=== PATIENT | male | born 1955 | race Caucasian/White ===

== ENCOUNTER 2020-03-13 17:38 | Inpatient (IN) ==
[2020-03-13] MEDS ORDERED: PIPERACILLIN/TAZOBACTAM 4.5 GM/120 ML BAG IV ONE (17:53)
[2020-03-13] MEDS ORDERED: PIPERACILL/TAZOBAC CONSULT ACTIVE PRN ×2 (17:53→23:12)
[2020-03-13] MEDS ORDERED: SODIUM CHLORIDE 0.9% 1000ML 1,000 ML IV SCH (18:00)
--- NOTE | 2020-03-13 18:01 | Emergency Department Note ---
History of Present Illness General Chief complaint: Testicular Pain Stated complaint: Swelling Time Seen by Provider: 03/13/20 17:43 Source: patient Mode of arrival: EMS Limitations: no limitations History of Present Illness Provider complaint: Scrotal pain/redness Maximum Pain Intensity: 9 This is a 64-year-old male who presents to the ED with a chief complaint of redness, swelling and pain in his scrotum. The patient states that he has had it for a couple of days. He also has reportedly had a fever. He was tested for Covid on Sunday that was negative. He has history of stroke and for this reason he is residing at [facility]. Home Medications Home Medications Medication Instructions Recorded Confirmed Type acetaminophen 325 mg capsule 650 mg PO Q6H PRN MDD 3 /12/23/19 03/13/20 History HOURS benzocaine 15 mg-menthol 2.3 mg 1 tari PO DIRECTED PRN 12/23/19 03/13/20 History lozenges chlorthalidone 25 mg tablet 12.5 mg PO QAM tab 12/23/19 03/13/20 History diphenhydramine HCl 25 mg capsule 25 mg PO QPM cap 12/23/19 03/13/20 History famotidine 20 mg tablet 20 mg PO BID 12/23/19 03/13/20 History finasteride 5 mg tablet 5 mg PO QAM 12/23/19 03/13/20 History fluoxetine 20 mg capsule 20 mg PO QAM 12/23/19 03/13/20 History labetalol 100 mg tablet 50 mg PO BID tab 12/23/19 03/13/20 History loperamide 2 mg capsule 2 mg PO Q6H PRN 12/23/19 03/13/20 History losartan 25 mg tablet 25 mg PO QAM 12/23/19 03/13/20 History methyl salicylate 15 %-menthol 10 1 appln TOP TID PRN 12/23/19 03/13/20 History % topical cream rivaroxaban 10 mg tablet 10 mg PO QPM 12/23/19 03/13/20 History tamsulosin 0.4 mg capsule 0.4 mg PO HS 12/23/19 03/13/20 History melatonin 3 mg PO HS 03/13/20 03/13/20 History nystatin 1 applic TOPICAL BID 03/13/20 03/13/20 History ondansetron HCl [Zofran] 4 mg PO Q6H PRN 03/13/20 03/13/20 History sennosides-docusate sodium 1 tab-cap PO QPM 03/13/20 03/13/20 History [Senokot-S] Allergies Allergy/AdvReac Type Severity Reaction Status Date / Time coffee (Coffea arabica) Allergy Unknown ON CENTRE Verified 03/13/20 20:21 CREST LIST strawberry Allergy Unknown ON CENTRE Verified 03/13/20 20:21 CREST LIST ENVIRONMENT Allergy Intermediate CONGESTION Uncoded 03/13/20 20:22 Past Med/Surg History Medical History Atrial fibrillation Depression Diabetes HTN (hypertension) Left hemiparesis Morbid obesity Family History Other Cancer No pertinent family history in first degree relatives Stroke Social History Smoking Status: Never smoker Preferred Language: Monegas[place] Feels Safe at Home: Yes Review of Systems A total of 10 systems reviewed and were otherwise negative Physical Exam Vital Signs Vital Signs - 24 hr 03/13/20 17:49 03/13/20 17:52 03/13/20 17:54 Temperature 36.9 C Temperature Source Oral Pulse Rate 85 84 95 H Pulse Rate from SpO2 Sensor Pulse Rhythm Regular Pulse Strength Normal Respiratory Rate 34 H 24 34 H Respiratory Effort / Characteristics Non-Labored Spontaneous Respiratory Depth Normal Respiratory Pattern Regular Blood Pressure 135/81 135/81 Blood Pressure Mean 92 99 Blood Pressure Position Lying Pulse Oximetry 96 97 Oxygen Delivery Method Room Air Room Air Sepsis Recent Fever Within 48 Hours Yes Sepsis New/Unexplained Change in Mental Status N/A Sepsis Action Taken by Nursing No Action Required 03/13/20 17:57 03/13/20 18:00 03/13/20 18:01 Temperature Temperature Source Pulse Rate 89 93 H Pulse Rate from SpO2 Sensor Pulse Rhythm Pulse Strength Respiratory Rate 26 H 25 H Respiratory Effort / Characteristics Respiratory Depth Respiratory Pattern Blood Pressure 129/90 Blood Pressure Mean 96 Blood Pressure Position Pulse Oximetry 97 97 Oxygen Delivery Method Room Air Room Air Sepsis Recent Fever Within 48 Hours Sepsis New/Unexplained Change in Mental Status Sepsis Action Taken by Nursing 03/13/20 18:30 03/13/20 19:00 03/13/20 19:01 Temperature Temperature Source Pulse Rate 95 H 91 H Pulse Rate from SpO2 Sensor Pulse Rhythm Pulse Strength Respiratory Rate 30 H 18 Respiratory Effort / Characteristics Respiratory Depth Respiratory Pattern Blood Pressure 108/78 Blood Pressure Mean 79 Blood Pressure Position Pulse Oximetry 96 Oxygen Delivery Method Room Air Sepsis Recent Fever Within 48 Hours Sepsis New/Unexplained Change in Mental Status Sepsis Action Taken by Nursing 03/13/20 20:06 03/13/20 20:09 03/13/20 20:30 Temperature Temperature Source Pulse Rate 94 H 94 H 105 H Pulse Rate from SpO2 Sensor 93 H Pulse Rhythm Pulse Strength Respiratory Rate 15 33 H 38 H Respiratory Effort / Characteristics Respiratory Depth Respiratory Pattern Blood Pressure 159/141 H Blood Pressure Mean 146 Blood Pressure Position Pulse Oximetry 94 95 Oxygen Delivery Method Room Air Room Air Sepsis Recent Fever Within 48 Hours Sepsis New/Unexplained Change in Mental Status Sepsis Action Taken by Nursing 03/13/20 21:00 03/13/20 21:01 Temperature Temperature Source Pulse Rate 99 H 97 H Pulse Rate from SpO2 Sensor 97 H 99 H Pulse Rhythm Pulse Strength Respiratory Rate 26 H 26 H Respiratory Effort / Characteristics Respiratory Depth Respiratory Pattern Blood Pressure 138/76 Blood Pressure Mean 99 Blood Pressure Position Pulse Oximetry 92 94 Oxygen Delivery Method Room Air Room Air Sepsis Recent Fever Within 48 Hours Sepsis New/Unexplained Change in Mental Status Sepsis Action Taken by Nursing CONSTITUTIONAL/VITAL SIGNS: Reviewed / noted above. GENERAL: Non-toxic in appearance. INTEGUMENTARY: Warm, dry, and [place]. HEAD: Normocephalic. EYES: without scleral icterus or trauma. ENT/OROPHARYNX: clear and moist. LYMPHADENOPATHY/NECK: Is supple without lymphadenopathy or meningismus. RESPIRATORY: Lungs clear and equal. CARDIOVASCULAR: Regular rate and rhythm. GI/ABDOMEN: Soft and nontender. No organomegaly or pulsatile mass. No rebound or guarding. Normal bowel sounds. EXTREMITIES: Warm and well perfused. NEUROLOGICAL: Generalized weakness. Left-sided paresis. PSYCHIATRIC: normal affect. MUSCULOSKELETAL: Chronically bedbound and obese. SCROTUM: The scrotum is significantly enlarged and erythematous as well as tender with some superficial skin breakdown. TRIAGE NURSING DOCUMENTATION REVIEWED. Course Administered Medications Discontinued Medications Sodium Chloride (Nss 1000ml) 1,000 mls @ 999 mls/hr IV .Q1H1M GUSTAVO Stop: 03/13/20 19:00 Last Infusion: 03/13/20 19:52 Dose: 0 mls/hr Documented by: [id number] Admin: 03/13/20 18:51 Dose: 999 mls/hr Documented by: [id number] Piperacillin Sod/Tazobactam Sod (Zosyn) 4.5 gm in 120 mls @ 240 mls/hr IV NOW ONE Stop: 03/13/20 18:22 Last Infusion: 03/13/20 19:21 Dose: 0 mls/hr Documented by: [id number] Admin: 03/13/20 18:51 Dose: 240 mls/hr Documented by: [id number] Ioversol (Ioversol 100ml) 95 ml IV ONCE ONE Stop: 03/13/20 19:58 Last Admin: 03/13/20 19:57 Dose: 95 ml Documented by: [id number] Medical Decision Making Differential Diagnosis Cellulitis, abscess, MRSA infection, DVT, necrotizing fasciitis, dermatitis, drug eruption, allergic reaction, as well as other pathologies. Medical Records Attestation: I reviewed the patient's medical records. Home Medications Current Medication List: was personally reviewed by me Laboratory Data Attestation: I reviewed the patient's lab results. Result diagrams: 03/13/20 18:41 03/13/20 18:41 Lab Results 03/13/20 03/13/20 03/13/20 Range/Units 18:41 18:41 18:41 WBC 15.42 H (4.8-10.8) K/uL RBC 4.66 L (4.7-6.1) M/uL Hgb 14.3 (14.0-18.0) g/dL Hct 42.0 (42-52) % MCV 90.1 (80-100) fL MCH 30.7 (25-34) pg MCHC 34.0 (32-36) g/dL RDW Std Deviation 42.6 (36.4-46.3) fL RDW Coeff of [place] 13.0 (11.5-14.5) % Plt Count 243 (130-400) K/uL MPV 10.6 H (7.4-10.4) fL Immature Gran % (Auto) 0.3 % Neut % (Auto) 77.5 % Lymph % (Auto) 13.1 % [place] % (Auto) 8.8 % Eos % (Auto) 0.2 % Baso % (Auto) 0.1 % Neut # (Auto) 11.97 H (1.4-6.5) K/uL Lymph # (Auto) 2.02 (1.2-3.4) K/uL [place] # (Auto) 1.35 H (0.11-0.59) K/uL Eos # (Auto) 0.03 (0-0.5) K/uL Baso # (Auto) 0.01 (0-0.2) K/uL Immature Gran # (Auto) 0.04 H (0.00-0.02) K/uL Sodium 130 L (136-145) mmol/L Potassium 3.1 L (3.5-5.1) mmol/L Chloride 93 L (98-107) mmol/L Carbon Dioxide 32 (21-32) mmol/L Anion Gap 5.0 (3-11) BUN 25 H (7-18) mg/dl Creatinine 1.10 (0.6-1.4) mg/dl Est Cr Clr Drug Dosing 100.6 ml/min Est GFR ( Amer) 82.4 Est GFR (Non-Af Amer) 71.1 BUN/Creatinine Ratio 22.6 H (10-20) Glucose 95 (70-99) mg/dl Lactate 1.3 (0.4-2.0) mmol/L Calcium 9.4 (8.5-10.1) mg/dl Total Bilirubin 1.3 H (0.2-1) mg/dl AST 17 (15-37) U/L ALT 20 (12-78) U/L Alkaline Phosphatase 75 (45-117) U/L Total Protein 8.8 H (6.4-8.2) gm/dl Albumin 3.3 L (3.4-5.0) gm/dl Globulin 5.5 H (2.5-4.0) gm/dl Albumin/Globulin Ratio 0.6 L (0.9-2) Lipase 70 L (73-393) U/L Urine Color Urine Appearance (Clear) Urine pH (4.5-7.5) Ur Specific [place] (1.000-1.030) Urine Protein (Negative) Urine Glucose (UA) (Negative) Urine Ketones (Negative) Urine Blood (Negative) Urine Nitrite (Negative) Urine Bilirubin (Negative) Urine Urobilinogen (Negative) Ur Leukocyte Esterase (Negative) 03/13/20 Range/Units 20:36 WBC (4.8-10.8) K/uL RBC (4.7-6.1) M/uL Hgb (14.0-18.0) g/dL Hct (42-52) % MCV (80-100) fL MCH (25-34) pg MCHC (32-36) g/dL RDW Std Deviation (36.4-46.3) fL RDW Coeff of [place] (11.5-14.5) % Plt Count (130-400) K/uL MPV (7.4-10.4) fL Immature Gran % (Auto) % Neut % (Auto) % Lymph % (Auto) % [place] % (Auto) % Eos % (Auto) % Baso % (Auto) % Neut # (Auto) (1.4-6.5) K/uL Lymph # (Auto) (1.2-3.4) K/uL [place] # (Auto) (0.11-0.59) K/uL Eos # (Auto) (0-0.5) K/uL Baso # (Auto) (0-0.2) K/uL Immature Gran # (Auto) (0.00-0.02) K/uL Sodium (136-145) mmol/L Potassium (3.5-5.1) mmol/L Chloride (98-107) mmol/L Carbon Dioxide (21-32) mmol/L Anion Gap (3-11) BUN (7-18) mg/dl Creatinine (0.6-1.4) mg/dl Est Cr Clr Drug Dosing ml/min Est GFR ( Amer) Est GFR (Non-Af Amer) BUN/Creatinine Ratio (10-20) Glucose (70-99) mg/dl Lactate (0.4-2.0) mmol/L Calcium (8.5-10.1) mg/dl Total Bilirubin (0.2-1) mg/dl AST (15-37) U/L ALT (12-78) U/L Alkaline Phosphatase (45-117) U/L Total Protein (6.4-8.2) gm/dl Albumin (3.4-5.0) gm/dl Globulin (2.5-4.0) gm/dl Albumin/Globulin Ratio (0.9-2) Lipase (73-393) U/L Urine Color Dark Yellow Urine Appearance Cloudy A (Clear) Urine pH 5.0 (4.5-7.5) Ur Specific [place] 1.036 H (1.000-1.030) Urine Protein 2+ H (Negative) Urine Glucose (UA) Negative (Negative) Urine Ketones Negative (Negative) Urine Blood 2+ H (Negative) Urine Nitrite Positive A (Negative) Urine Bilirubin Negative (Negative) Urine Urobilinogen Negative (Negative) Ur Leukocyte Esterase 2+ H (Negative) Imaging Data Radiologist's Impression: A CT scan of the abdomen pelvis with IV contrast, per stat rad shows a severe subcutaneous edema seen throughout the scrotum and skin thickening measuring approximately 2 cm. There are bilateral hydroceles measuring 1.3 and 1.8 cm. No subcutaneous gas is identified. Consider cellulitis or orchitis. MDM Narrative The patient presents to the ED with a chief complaint of scrotal swelling, pain and redness. He has had this for a couple of days. He is a diabetic. He has history of stroke. He is on anticoagulation for A. fib chronically. He reportedly had a fever. The patient's CBC shows a white blood cell count of 15.4. Potassium is 3.1. BUN is 25. Other blood work was unremarkable. Lactate was normal. Urine is suggestive of infection. CT scan shows scrotal cellulitis without evidence of gas-forming. The patient was treated with IV Zosyn and IV fluids. He will be seen by the hospitalist for further patient evaluation and care. Impression & Plan Cellulitis of scrotum, Acute UTI Discharge Plan Visit Data Chief Complaint: Testicular Pain Stated Complaint: Swelling ED Provider: Mukund Gamble Discharge Problem: Cellulitis of scrotum, Acute UTI Patient Disposition: Being Evaluated by Hospitalist Forms Stand Alone Forms: [employer] Prescriptions Prescriptions: No Action Beng[place] Greaseless 15-10 % cream 1 appln TOP TID PRN (Reason: PAIN RELIEF) RF: 0 Cepacol Sore Throat (naye-men) 15-2.3 mg lozenge 1 tari PO DIRECTED PRN (Reason: sore throat) RF: 0 chlorthalidone 25 mg tablet 12.5 mg PO QAM RF: 0 diphenhydramine HCl [Allergy (diphenhydramine)] 25 mg capsule 25 mg PO QPM RF: 0 famotidine 20 mg tablet 20 mg PO BID RF: 0 finasteride 5 mg tablet 5 mg PO QAM RF: 0 fluoxetine 20 mg capsule 20 mg PO QAM RF: 0 loperamide [Imodium A-D] 2 mg capsule 2 mg PO Q6H PRN (Reason: Diarrhea) RF: 0 labetalol 100 mg tablet 50 mg PO BID RF: 0 losartan 25 mg tablet 25 mg PO QAM RF: 0 tamsulosin 0.4 mg capsule 0.4 mg PO HS RF: 0 acetaminophen [Tylenol] 325 mg capsule 650 mg PO Q6H MDD 3 GRAMS/24 HOURS PRN (Reason: FEVER/PAIN) RF: 0 Xarelto 10 mg tablet 10 mg PO QPM RF: 0 ondansetron HCl [Zofran] 4 mg Tablet 4 mg PO Q6H PRN (Reason: NAUSEA/VOMITING) RF: 0 sennosides-docusate sodium [Senokot-S] 8.6-50 mg Tablet 1 tab-cap PO QPM RF: 0 melatonin 3 mg Tablet 3 mg PO HS RF: 0 nystatin 100,000 unit/gram Cream 1 applic TOPICAL BID RF: 0 Referrals Referrals: Hemal Sheriff [Primary Care Provider] -
[2020-03-13 18:59] LABS: Basophils # (auto) 0.01 K/uL (0-0.2); Basophils % (auto) 0.1 %; Eosinophils # (auto) 0.03 K/uL (0-0.5); Eosinophils % (auto) 0.2 %; Hemoglobin 14.3 g/dL (14.0-18.0); Immature Granulocytes # (auto) 0.04 K/uL (0.00-0.02); Immature Granulocytes % (auto) 0.3 %; Lymphocytes # (auto) 2.02 K/uL (1.2-3.4); Lymphocytes % (auto) 13.1 %; Mean Corpuscular Hemoglobin 30.7 pg (25-34); Mean Corpuscular Volume 90.1 fL (80-100); Mean Platelet Volume 10.6 fL (7.4-10.4); Monocytes # (auto) 1.35 K/uL (0.11-0.59); Monocytes % (auto) 8.8 %; Neutrophils # (auto) 11.97 K/uL (1.4-6.5); Neutrophils % (auto) 77.5 %; Platelet Count 243 K/uL (130-400); RDW Standard Deviation 42.6 fL (36.4-46.3); Red Blood Count 4.66 M/uL (4.7-6.1); White Blood Count 15.42 K/uL (4.8-10.8)
[2020-03-13 19:12] LABS: Albumin Level 3.3 gm/dl (3.4-5.0); BUN Creatinine Ratio 22.6 (10-20); Calcium 9.4 mg/dl (8.5-10.1); Creatinine Clr Calc Pharmacy 100.6 ml/min; Est GFR (African American) 82.4; Est GFR (Non-African American) 71.1; Potassium 3.1 mmol/L (3.5-5.1)
[2020-03-13 19:15] LABS: Albumin Globulin Ratio 0.6 (0.9-2); Bilirubin,Total 1.3 mg/dl (0.2-1); Globulin 5.5 gm/dl (2.5-4.0); Total Protein 8.8 gm/dl (6.4-8.2)
[2020-03-13] MEDS ORDERED: IOVERSOL 100ml IV ONE (19:57)
[2020-03-13 21:18] LABS: Appearance Urine Cloudy (Clear); Bacteria Urine Automated 3+ (Negative); Bilirubin Urine Negative (Negative); Blood Urine 2+ (Negative); Color Urine Dark Yellow; Glucose Urine UA Negative (Negative); Ketones Urine Negative (Negative); Leukocyte Esterase Urine 2+ (Negative); Nitrite Urine Positive (Negative); Protein Urine 2+ (Negative); RBC Urine Automated 0-4 /hpf (0-4); Specific Gravity Urine 1.036 (1.000-1.030); Urobilinogen Urine Negative (Negative); WBC Urine Automated >30 /hpf (0-5)
--- NOTE | 2020-03-13 22:46 | History & Physical Report ---
Date of Service March 13, 2020 Assessment & Plan (1) Cellulitis of scrotum: Patient with scrotal cellullitis, ?orchitis as well as bilateral hydroceles. He is afebrile, HD stable at present. Has a neutrophil predominant leukocytosis and +urinalysis. CT of the abdomen with NO evidence of gas or necrotizing infection. -Admit to medical floor -Apply scrotal lift if tolerated -Zosyn 4.5gm IV q 8 -Follow cultures -Tylenol as needed for pain -Urology consultation appreciated Present on Admission?: Yes (2) Shortness of breath: Patient reports worsening shortness of breath over the last few days as well as orthopnea. He does not appear to be volume overloaded on exam, however exam is limited due to body habitus. -Check TSH -Check BNP -Check 2D echo Present on Admission?: Yes (3) Atrial fibrillation: Rate controlled. Anticoagulated with Rivaroxaban -Continue Labetalol 50mg po BID -Continue Rivaroxaban 10mg po qPM Present on Admission?: Yes (4) HTN (hypertension): Blood pressure mildly elevated in the ER -Continue Chlorthalidone 12.5mg po daily -Continue Labetalol 50mg po BID -Continue Losartan 25mg po qAM -Continue to monitor Present on Admission?: Yes (5) BPH (benign prostatic hyperplasia): Chronic -Continue Finasteride 5mg po qAM -Continue Flomax 0.4mg po qHA Present on Admission?: Yes (6) Depression: Patient with flat affect, seems slightly angry at times. He is compliant with therapy and exam -Continue Fluoxetine 20mg po qAM F/E/N - NSS at 125mL/hr x 2 liters, monitor electrolytes, will give 40mEq KCl for K of 3.1, repeat chemistry panel in AM, Heart healthy diet as tolerated Patient has diagnosis of DM in his chart, however, he denies that he is diabetic. Is not currently on any medications for DM. BS normal at 95. Check HgBA1C with AM labs Continue Senokot Ppx - Rivaroxaban 10mg po qPM as above Code - DNR/DNI per discussion with patient Dispo - Admit to medical floor Present on Admission?: Yes History of Present Illness Chief Complaint: testicular pain Primary Care Provider: [facility] Mr. Diego Lozada is a 64yo C male with history of atrial fibrillation, obesity, prior CVA with left sided deficit. Patient resides at [facility]. He reports 3-4 days of testicular pain and swelling. He has had some subjective fevers and chills as well as nausea. Notes he has had some worsening shortness of breath over the last few weeks as well as some orthopnea. He has never had difficulties with testicular pain or swelling before. He denies penile discharge. Is not sexually active. Denies CP/palpitations/abdominal pain/vomiting/constipation Has loose stools at baseline. No Covid-19 concerns - per [facility] records he had testing on Sunday which was negative No additional complaints at this time. ER Course: Zosyn Allergies Allergy/AdvReac Type Severity Reaction Status Date / Time coffee (Coffea arabica) Allergy Unknown ON CENTRE Verified 03/13/20 20:[address] [facility] LIST strawberry Allergy Unknown ON CENTRE Verified 03/13/20 20: [facility] LIST ENVIRONMENT Allergy Intermediate CONGESTION Uncoded 03/13/20 20:22 Home Medications Home Medications Medication Instructions Recorded Confirmed Type acetaminophen 325 mg capsule 650 mg PO Q6H PRN MDD 3 GRAMS/12/23/19 03/13/20 History HOURS benzocaine 15 mg-menthol 2.3 mg 1 tari PO DIRECTED PRN 12/23/19 03/13/20 History lozenges chlorthalidone 25 mg tablet 12.5 mg PO QAM tab 12/23/19 03/13/20 History diphenhydramine HCl 25 mg capsule 25 mg PO QPM cap 12/23/19 03/13/20 History famotidine 20 mg tablet 20 mg PO BID 12/23/19 03/13/20 History finasteride 5 mg tablet 5 mg PO QAM 12/23/19 03/13/20 History fluoxetine 20 mg capsule 20 mg PO QAM 12/23/19 03/13/20 History labetalol 100 mg tablet 50 mg PO BID tab 12/23/19 03/13/20 History loperamide 2 mg capsule 2 mg PO Q6H PRN 12/23/19 03/13/20 History losartan 25 mg tablet 25 mg PO QAM 12/23/19 03/13/20 History methyl salicylate 15 %-menthol 10 1 appln TOP TID PRN 12/23/19 03/13/20 History % topical cream rivaroxaban 10 mg tablet 10 mg PO QPM 12/23/19 03/13/20 History tamsulosin 0.4 mg capsule 0.4 mg PO HS 12/23/19 03/13/20 History melatonin 3 mg PO HS 03/13/20 03/13/20 History nystatin 1 applic TOPICAL BID 03/13/20 03/13/20 History ondansetron HCl [Zofran] 4 mg PO Q6H PRN 03/13/20 03/13/20 History sennosides-docusate sodium 1 tab-cap PO QPM 03/13/20 03/13/20 History [Senokot-S] Past Med/Surg History Medical History Atrial fibrillation Depression Diabetes HTN (hypertension) Left hemiparesis Morbid obesity Family History Other Cancer No pertinent family history in first degree relatives Stroke Social History (Updated 03/13/20 @ 22:56 by Radha Bowens DO) Smoking Status: Never smoker Hx Alcohol Use: No Hx Substance Use: No Preferred Language: Mongolian Feels Safe at Home: Yes Review of Systems Review of Systems: All systems reviewed & are unremarkable except as noted in HPI & below Physical Exam Physical Exam: General: morbidly obese male patient resting comfortably, NAD, non-toxic in appearance, AA&O x 4 HEENT: NC/AT, PERRL, EOMI, anicteric sclera, conjunctiva without injection, external ear normal to inspection and nontender, nares patent, moist mucus membranes, dentition intact, no oropharyngeal lesions, neck supple, trachea midline, no LAD, no thyromegaly, no JVD Heart: +S1/S2, irregularly irregular, no m/r/g Lungs: equal air entry bilaterally, no rales/rhonchi/wheezes anteriorly Abd: obese, +BS, soft, NT/ND, no masses/organomegaly/ascites Ext: warm, 2+ pulses in UE/LE bilaterally, skin thickening/hemosiderin staining on bilateral LE suggestive of chronic venous stasis : +Scrotal edema, warmth, tenderness, +Penile edema, ?balanitis, tender to palpation, no crepitus/bullae/lymphangitic streaking Neuro: left sided deficit stable Results & Data Results & Data ([facility]) Vital Signs (Past 12 Hours) Vital Signs Temp Pulse Resp BP Pulse Ox 03/13/20 22:01 99 H 36 H 95 03/13/20 22:00 96 H 20 145/80 H 96 03/13/20 21:31 90 28 H 90 03/13/20 21:30 91 H 26 H 131/70 93 03/13/20 21:02 103 H 32 H 96 03/13/20 21:01 97 H 26 H 138/76 94 03/13/20 21:00 99 H 26 H 92 03/13/20 20:30 105 H 38 H 03/13/20 20:09 94 H 33 H 159/141 H 95 03/13/20 20:06 94 H 15 94 03/13/20 19:01 91 H 18 108/78 96 03/13/20 19:00 95 H 03/13/20 18:30 30 H 03/13/20 18:01 93 H 25 H 03/13/20 18:00 89 26 H 129/90 97 03/13/20 17:57 97 03/13/20 17:54 95 H 34 H 03/13/20 17:52 36.9 C 84 24 135/81 97 03/13/20 17:49 85 34 H 135/81 96 Laboratory Results Lab Results 03/13/20 03/13/20 03/13/20 Range/Units 18:41 18:41 18:41 WBC 15.42 H (4.8-10.8) K/uL RBC 4.66 L (4.7-6.1) M/uL Hgb 14.3 (14.0-18.0) g/dL Hct 42.0 (42-52) % MCV 90.1 (80-100) fL MCH 30.7 (25-34) pg MCHC 34.0 (32-36) g/dL RDW Std Deviation 42.6 (36.4-46.3) fL RDW Coeff of [place] 13.0 (11.5-14.5) % Plt Count 243 (130-400) K/uL MPV 10.6 H (7.4-10.4) fL Immature Gran % (Auto) 0.3 % Neut % (Auto) 77.5 % Lymph % (Auto) 13.1 % [place] % (Auto) 8.8 % Eos % (Auto) 0.2 % Baso % (Auto) 0.1 % Neut # (Auto) 11.97 H (1.4-6.5) K/uL Lymph # (Auto) 2.02 (1.2-3.4) K/uL [place] # (Auto) 1.35 H (0.11-0.59) K/uL Eos # (Auto) 0.03 (0-0.5) K/uL Baso # (Auto) 0.01 (0-0.2) K/uL Immature Gran # (Auto) 0.04 H (0.00-0.02) K/uL Sodium 130 L (136-145) mmol/L Potassium 3.1 L (3.5-5.1) mmol/L Chloride 93 L (98-107) mmol/L Carbon Dioxide 32 (21-32) mmol/L Anion Gap 5.0 (3-11) BUN 25 H (7-18) mg/dl Creatinine 1.10 (0.6-1.4) mg/dl Est Cr Clr Drug Dosing 100.6 ml/min Est GFR ( Amer) 82.4 Est GFR (Non-Af Amer) 71.1 BUN/Creatinine Ratio 22.6 H (10-20) Glucose 95 (70-99) mg/dl Lactate 1.3 (0.4-2.0) mmol/L Calcium 9.4 (8.5-10.1) mg/dl Total Bilirubin 1.3 H (0.2-1) mg/dl AST 17 (15-37) U/L ALT 20 (12-78) U/L Alkaline Phosphatase 75 (45-117) U/L Total Protein 8.8 H (6.4-8.2) gm/dl Albumin 3.3 L (3.4-5.0) gm/dl Globulin 5.5 H (2.5-4.0) gm/dl Albumin/Globulin Ratio 0.6 L (0.9-2) Lipase 70 L (73-393) U/L Urine Color Urine Appearance (Clear) Urine pH (4.5-7.5) Ur Specific [place] (1.000-1.030) Urine Protein (Negative) Urine Glucose (UA) (Negative) Urine Ketones (Negative) Urine Blood (Negative) Urine Nitrite (Negative) Urine Bilirubin (Negative) Urine Urobilinogen (Negative) Ur Leukocyte Esterase (Negative) Urine WBC (Auto) (0-5) /hpf Urine RBC (Auto) (0-4) /hpf U Hyaline Cast (Auto) (0-5) /lpf U Epithel Cells (Auto) (0-5) /lpf Urine Bacteria (Auto) (Negative) Urine Yeast 03/13/20 Range/Units 20:36 WBC (4.8-10.8) K/uL RBC (4.7-6.1) M/uL Hgb (14.0-18.0) g/dL Hct (42-52) % MCV (80-100) fL MCH (25-34) pg MCHC (32-36) g/dL RDW Std Deviation (36.4-46.3) fL RDW Coeff of [place] (11.5-14.5) % Plt Count (130-400) K/uL MPV (7.4-10.4) fL Immature Gran % (Auto) % Neut % (Auto) % Lymph % (Auto) % [place] % (Auto) % Eos % (Auto) % Baso % (Auto) % Neut # (Auto) (1.4-6.5) K/uL Lymph # (Auto) (1.2-3.4) K/uL [place] # (Auto) (0.11-0.59) K/uL Eos # (Auto) (0-0.5) K/uL Baso # (Auto) (0-0.2) K/uL Immature Gran # (Auto) (0.00-0.02) K/uL Sodium (136-145) mmol/L Potassium (3.5-5.1) mmol/L Chloride (98-107) mmol/L Carbon Dioxide (21-32) mmol/L Anion Gap (3-11) BUN (7-18) mg/dl Creatinine (0.6-1.4) mg/dl Est Cr Clr Drug Dosing ml/min Est GFR ( Amer) Est GFR (Non-Af Amer) BUN/Creatinine Ratio (10-20) Glucose (70-99) mg/dl Lactate (0.4-2.0) mmol/L Calcium (8.5-10.1) mg/dl Total Bilirubin (0.2-1) mg/dl AST (15-37) U/L ALT (12-78) U/L Alkaline Phosphatase (45-117) U/L Total Protein (6.4-8.2) gm/dl Albumin (3.4-5.0) gm/dl Globulin (2.5-4.0) gm/dl Albumin/Globulin Ratio (0.9-2) Lipase (73-393) U/L Urine Color Dark Yellow Urine Appearance Cloudy A (Clear) Urine pH 5.0 (4.5-7.5) Ur Specific [place] 1.036 H (1.000-1.030) Urine Protein 2+ H (Negative) Urine Glucose (UA) Negative (Negative) Urine Ketones Negative (Negative) Urine Blood 2+ H (Negative) Urine Nitrite Positive A (Negative) Urine Bilirubin Negative (Negative) Urine Urobilinogen Negative (Negative) Ur Leukocyte Esterase 2+ H (Negative) Urine WBC (Auto) >30 H (0-5) /hpf Urine RBC (Auto) 0-4 (0-4) /hpf U Hyaline Cast (Auto) 1-5 (0-5) /lpf U Epithel Cells (Auto) 5-10 H (0-5) /lpf Urine Bacteria (Auto) 3+ H (Negative) Urine Yeast Not Reportable Diagnostic Findings CT Abdomen and Pelvis with contrast: Per STAT-rad read: Severe subcutaneous edema is seen throughout the scrotum wtih skin thickening measuring approximately 2cm. There are bilateral hydroceles measuring 1.3 and 1.8 cm. No subcutaneous gas is identified. Consider cellulitis and/or orchitis. 1.8cm gallstone within the nondilated gallbladder. No pericholecystic inflammation is identified. Bowel loops are nondilated. The appendix is normal. No acute inflammator process is seen involving the bowel. Large body habitus with portions of the right side of the abdomen extending beyond the field of view. Mild degenerative changes throughout the spine. No acute fracture or subluxation. PG Care Time/CCT Total # of Minutes Spent Total Time Spent with Patient: Total time spent is greater than 50% in coordination of care (as documented) at patient's floor/unit and/or counseling patient: Coding Level of Care Code 13625 Initial Inpt Care Lvl 3 Diagnoses Cellulitis of scrotum N49.2 Shortness of breath R06.02 Atrial fibrillation I48.91 Atrial fibrillation type: unspecified HTN (hypertension) I10 Hypertension type: essential hypertension BPH (benign prostatic hyperplasia) N40.0 Lower urinary tract symptom presence: unspecified whether lower urinary tract symptoms present Depression F32.9 Depression Type: unspecified (1) Atrial fibrillation Atrial fibrillation type: unspecified Qualified Code(s): I48.91 - Unspecified atrial fibrillation (2) Depression Depression Type: unspecified Qualified Code(s): F32.9 - Major depressive disorder, single episode, unspecified (3) HTN (hypertension) Hypertension type: essential hypertension Qualified Code(s): I10 - Essential (primary) hypertension (4) BPH (benign prostatic hyperplasia) Lower urinary tract symptom presence: unspecified whether lower urinary tract symptoms present Qualified Code(s): N40.0 - Benign prostatic hyperplasia without lower urinary tract symptoms
[2020-03-13] MEDS ORDERED: NON-FORMULARY MEDICATION (Acetaminophen [Tylenol] 650 MG) PO PRN (23:12)
[2020-03-13] MEDS ORDERED: POTASSIUM CHLORIDE 20 MEQ TABCR PO STA (23:12)
[2020-03-13] MEDS ORDERED: TROLAMINE SALICYLATE 10% CRM 255 APPLN/85 GM TUBE EXT PRN (23:20)
[2020-03-13 23:49] LABS: Magnesium 2.4 mg/dl (1.8-2.4); Phosphorus 3.6 mg/dl (2.5-4.9)
[2020-03-14] MEDS: LABETALOL HCL 100 MG TAB PO SCH ×3 (00:19→21:14)
[2020-03-14] MEDS: PIPERACILLIN/TAZOBACTAM 4.5 GM in DEXTROSE 5% 100 ML IV SCH ×4 (00:20→23:40)
[2020-03-14] MEDS: SODIUM CHLORIDE 0.9% 1000ML 1,000 ML IV SCH ×2 (00:20→08:56)
[2020-03-14 06:17] LABS: Basophils # (auto) 0.02 K/uL (0-0.2); Basophils % (auto) 0.1 %; Eosinophils # (auto) 0.03 K/uL (0-0.5); Eosinophils % (auto) 0.2 %; Hematocrit (blood only) 38.4 % (42-52); Hemoglobin 12.9 g/dL (14.0-18.0); Immature Granulocytes # (auto) 0.06 K/uL (0.00-0.02); Immature Granulocytes % (auto) 0.4 %; Lymphocytes # (auto) 1.16 K/uL (1.2-3.4); Lymphocytes % (auto) 8.4 %; Mean Corpuscular Hemoglobin 30.3 pg (25-34); Mean Corpuscular Hgb Conc 33.6 g/dL (32-36); Mean Corpuscular Volume 90.1 fL (80-100); Mean Platelet Volume 10.8 fL (7.4-10.4); Monocytes # (auto) 0.94 K/uL (0.11-0.59); Monocytes % (auto) 6.8 %; Neutrophils # (auto) 11.68 K/uL (1.4-6.5); Neutrophils % (auto) 84.1 %; Platelet Count 240 K/uL (130-400); RDW Standard Deviation 42.8 fL (36.4-46.3); Red Blood Count 4.26 M/uL (4.7-6.1); White Blood Count 13.89 K/uL (4.8-10.8)
[2020-03-14 06:49] LABS: Albumin Level 2.7 gm/dl (3.4-5.0); BUN Creatinine Ratio 25.8 (10-20); Bilirubin Direct 0.4 mg/dl (0-0.2); Calcium 9.2 mg/dl (8.5-10.1); Creatinine Clr Calc Pharmacy 116.4 ml/min; Est GFR (African American) 99.6; Est GFR (Non-African American) 85.9
[2020-03-14 06:59] LABS: Bilirubin,Total 1.1 mg/dl (0.2-1); Thyroid Stimulating Hormone 0.671 uIu/ml (0.300-4.500); Total Protein 7.5 gm/dl (6.4-8.2)
[2020-03-14] MEDS: ONDANSETRON INJ 2 MG/ML 2 ML VIAL IV PRN (07:40)
[2020-03-14] MEDS ORDERED: POTASSIUM CHLORIDE 20 MEQ TABCR PO STA (07:56)
[2020-03-14] MEDS: NSS + 20MEQ KCL 20 MEQ/1,000 ML BAG IV SCH ×2 (08:51→17:44)
[2020-03-14] MEDS: FINASTERIDE 5 MG TAB PO SCH (08:51)
[2020-03-14] MEDS: CHLORTHALIDONE 25 MG TAB PO SCH (08:52)
[2020-03-14] MEDS: FAMOTIDINE 20 MG TAB PO SCH ×2 (08:52→21:15)
[2020-03-14] MEDS: NYSTATIN CR 15 GM TUBE EXT SCH ×2 (08:52→21:15)
[2020-03-14] MEDS: FLUoxetine HCL 20 MG CAP PO SCH (08:52)
[2020-03-14] MEDS: LOSARTAN POTASSIUM 25 MG TAB PO SCH (08:52)
--- NOTE | 2020-03-14 09:19 | Hospitalist Progress Note ---
Date of Service March 14, 2020 Assessment & Plan (1) Cellulitis of scrotum: * Patient with scrotal cellullitis, orchitis as well as bilateral hydroceles on CT on admission. 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 Has a neutrophil predominant leukocytosis and +ur inalysis. CT of the abdomen with NO evidence of gas or necrotizing infection. Reported hx listed for DM although patient denies. A1c pending. Lactic 1.3 * Scrotal lift if able -- not currently * Elevation with towel * Continue Zosyn 4.5gm IV Q8 * IVF support -- added 20meq KCl to IVF for hypoK * Blood cultures pending. * Tylenol as need for pain * Urology consulted -- appreciate assistance * Patient required st cath x 2 -- given degree of swelling, if patient unable to void in future would place Winkler catheter. nursing made aware to notify of bladder scan results and Winkler if needed * US Scrotum ordered to r/o torsion -- without evidence of torsion -- b/l epididymoorchitis, moderate bilateral hydroceles, marked skin thickening/edema within scrotum with associated increased color flow, favoring a cellulitis * Has been afebrile. 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 Culture with gram negative bacilli -- follow c/s * --> likely issues with retention contributing to UTI and possibly led to current orchitis * On Zosyn as above * Did have st cath this am for 800cc for BS 615cc * Winkler if needed for continued retention * Continue flomax, finasteride for BPH (3) Epididymo-orchitis: * As above. Zosyn should cover. MRSA swab negative (no need for clinda/dapto at this time) in non-sexually active man (4) Shortness of breath: * Patient reports worsening shortness of breath over the last few days as well as orthopnea. He does not appear to be volume overloaded on exam, however exam is limited due to body habitus. * TSH wnl * BNP 299 and without evidence of failure. Trop <0.015. EKG * ECHO -- mildly dilated LV with possibly low-normal systolic function. Estimated EF 50-55%. Poor image quality. No obvious wma, however cannot exclude. Severe concentric LVH. No significant valvular abn visualize, however valves were not well seen. Technically difficult study with poor image quality. Will need follow up at discharge. * Did get dose of IV lasix this morning 20mg for pulm edema on CXR * 94% on RA * Denied shortness of breath currently * Monitor for s/sx volume overload as he is on IVF (5) Atrial fibrillation: * Rate controlled. Not in on examination. * Continue labetalol 50mg po BID * Continue Rivaroxaban 10mg po qPM although this is only being used for DVT prophylaxis at the longterm. He previously was on Coumadin when he lived in [place] years ago but this was stopped when he had a hemorrhagic CVA * Consider increasing Xarelto dose to 20 mg daily for stroke prophylaxis as it appears his hemorrhagic CVA was thought to be brought on by head trauma? (6) HTN (hypertension): * Elevated to 174/87 likely secondary to pain * Holding chlorthalidone 12.5mg daily (did get this morning) as on IVF for above * Continue Labetalol 50mg po BID, Continue Losartan 25mg po qAM * Hydralazine prn SBD >180 or DBP >100 * Continue to monitor (7) BPH (benign prostatic hyperplasia): * Chronic * Continue Finasteride 5mg po qAM * Continue Flomax 0.4mg po qHS * See above -- if rec cath again will place winkler * Of note, did come back from US with large amount of incontinent urine * Continue to monitor UO (8) Depression: * Patient with flat affect, seems slightly angry at times. * Continue Fluoxetine 20mg po qAM (9) Hypokalemia: * K 3.1 on admit and given 40meq PO. Mag 2.4 * K down to 3.0 on AM labs * Ordered additional 40meq PO and added 20meq to IVF@125/cchr * Hold chlorthalidone (10) Elevated bilirubin: * Tbili 1.3 on admission, improved to 1.1 with direct 0.4 with IVF * CT showed cholelithiasis but no acute juana * Repeat labs in AM * If worsening abd pain/n/v could consider HIDA but will monitor for now (11) History of hemorrhagic cerebrovascular accident (CVA) with residual deficit: * With a history of right-sided hemorrhagic CVA in 03/2019 * With residual left-sided hemiparesis * Has a history of atrial fibrillation, however was not on Coumadin at the time of the stroke-was noted to have had a fall and this was thought to be a traumatic ICH as per ER notes from this facility * Supportive care (12) DVT prophylaxis: * Xarelto 10 mg daily which she is on chronically at the longterm (Of note, if bcx+ need to also factor in recent knee injections December [address] Gonzales) Dispo: continued hospitalization for IV abx for scrotal celluliti s/epididymoorchitis/gram negative UTI Patient resident of [facility] Admission and Anticipated Discharge Date Admission Date: March 13, 2020 Supervising Physician Co-Signing Physician Notes PA Supervision Note: I did not personally see or examine the patient today, but I verified all major points of MONIK Almaguer's assessment and plan with the following exceptions/additions: None Subjective Patient evaluated this morning. Resting in bed currently. Pain to his scrotal area. States "lola raegan" with regards to the catheterization this morning. Discussed if continues to require st cath, we may need to insert winkler. Has some umbilical discomfort as well as suprapubic. Nausea improved since this morning, but still present. Denies ever needing this in the past. Did have fevers, dysuria and increased urinary frequency along with scrotal swelling prior to admission. Does endorse some shortness of breath, not better or worse lying flat that he is willing to admit or endorse. No cough, wheezing or sputum production. No constipation, visual changes, sexual activity or penile discharge noted per his account. Very irritable with any questioning and wanting to lay in bed at this time. Not willing to participate in moving around or helping with examination at this time. Review of Systems Review of Systems: All systems reviewed & are unremarkable except as noted in HPI & below Physical Exam Physical Exam: General: morbidly obese male patient resting comfortably, NAD, non-toxic in appearance, AA&O x 4 HEENT: NC/AT, PERRL, EOMI, anicteric sclera, conjunctiva without injection, external ear normal to inspection and nontender, nares patent, moist mucus membranes, dentition intact, no oropharyngeal lesions, neck supple, trachea midline, no LAD, no thyromegaly, no JVD Heart: +S1/S2, irregularly irregular, no m/r/g Lungs: equal air entry bilaterally, no rales/rhonchi/wheezes anteriorly Abd: obese, +BS, soft, NT/ND, no masses/organomegaly/ascites Ext: warm, 2+ pulses in UE/LE bilaterally, skin thickening/hemosiderin staining on bilateral LE suggestive of chronic venous stasis : +Scrotal edema, warmth, tenderness, +Penile edema, ?balanitis, tender to palpation, no crepitus/bullae/lymphangitic streaking Neuro: left sided deficit stable Constitutional: well developed, + morbidly obese and comfortable; no acute distress Eyes: + anicteric sclerae; no eyelid abnormality ENMT: Ears: no hearing impairment Nose: no external nose abnormality mmm Neck: normal visual inspection and trachea midline Respiratory: normal respiratory effort and able to speak in complete sentences; no respiratory distress and no labored breathing Auscultation: + diminished lung sounds (throughout) Cardiovascular: Rate/Rhythm: regular rate and regular rhythm Heart Sounds: no gallop, no murmur and no cardiac rub Gastrointestinal (Abdomen): Inspection/Auscultation: + abdomen distended and normal bowel sounds Percussion/Palpation: + abdomen tender (umbilical, suprapubic); no guarding and abdomen not rigid Skin: warm skin thickening/hemosiderin staining on bilateral LE suggestive of chronic venous stasis. no pitting edema See Neurologic: stable L sided hemiparesis Psychiatric: Orientation: alert and oriented x 3 Affect: + irritable affect and + angry affect Genitourinary: scrotal edema, erythema +balanitis exquisitely tender to touch -phren's sign Results & Data Results & Data ([facility]) Vital Signs (Past 12 Hours) Vital Signs Temp Pulse Pulse Resp BP BP Pulse Ox 03/14/20 07:13 36.8 C 87 16 174/87 H 94 03/13/20 23:41 36.6 C 92 H 18 142/76 H 98 03/13/20 22:57 91 H 24 145/88 H 94 03/13/20 22:44 101 H 16 145/88 H 95 03/13/20 22:30 107 H 16 93 03/13/20 22:01 99 H 36 H 95 03/13/20 22:00 96 H 20 145/80 H 96 03/13/20 21:31 90 28 H 90 03/13/20 21:30 91 H 26 H 131/70 93 Vital Signs Temp 36.8 C 03/14/20 07:13 Pulse 87 03/14/20 07:13 Resp 16 03/14/20 07:13 BP 174/87 H 03/14/20 07:13 Pulse Ox 94 03/14/20 07:13 Intake & Output 03/13/20 03/14/20 03/14/20 18:59 06:59 18:59 Intake Total 1240 / 1240 1000 / 1000 Balance 1240 / 1240 1000 / 1000 Weight 159.6 kg 156.574 kg Intake: IV 1240 / 1240 1000 / 1000 ZOSYN 4.5 gm In 120 ml @ 240 120 / 120 mls/hr IV NOW ONE Rx#:[id number] Zosyn 4.5 gm In D5 100 ml @ 30 120 / 120 mls/hr IV Q8H [facility] Rx#:[id number] Nss 1000ML 1,000 ml @ 125 mls/ 1000 / 1000 1000 / 1000 hr IV .Q8H [facility] Rx#:[id number] Other: # Unmeasured Voids 1 Weight Measurement Method Built in [facility] Built in [facility] Laboratory Results 03/14/20 03/14/20 03/14/20 Range/Units Unknown 05:45 05:45 WBC (4.8-10.8) K/uL RBC (4.7-6.1) M/uL Hgb (14.0-18.0) g/dL Hct (42-52) % MCV (80-100) fL MCH (25-34) pg MCHC (32-36) g/dL RDW Std Deviation (36.4-46.3) fL RDW Coeff of Viridiana (11.5-14.5) % Plt Count (130-400) K/uL MPV (7.4-10.4) fL Immature Gran % (Auto) % Neut % (Auto) % Lymph % (Auto) % Kaufman % (Auto) % Eos % (Auto) % Baso % (Auto) % Neut # (Auto) (1.4-6.5) K/uL Lymph # (Auto) (1.2-3.4) K/uL Kaufman # (Auto) (0.11-0.59) K/uL Eos # (Auto) (0-0.5) K/uL Baso # (Auto) (0-0.2) K/uL Immature Gran # (Auto) (0.00-0.02) K/uL Sodium (136-145) mmol/L Potassium (3.5-5.1) mmol/L Chloride (98-107) mmol/L Carbon Dioxide (21-32) mmol/L Anion Gap (3-11) BUN (7-18) mg/dl Creatinine (0.6-1.4) mg/dl Est Cr Clr Drug Dosing ml/min Est GFR ( Amer) Est GFR (Non-Af Amer) BUN/Creatinine Ratio (10-20) Glucose (70-99) mg/dl Estimat Average Glucose Hemoglobin A1c Lactate (0.4-2.0) mmol/L Calcium (8.5-10.1) mg/dl Phosphorus (2.5-4.9) mg/dl Magnesium (1.8-2.4) mg/dl Total Bilirubin (0.2-1) mg/dl Direct Bilirubin (0-0.2) mg/dl AST (15-37) U/L ALT (12-78) U/L Alkaline Phosphatase (45-117) U/L Troponin I Pending NT-Pro-B Natriuret Pep (0-900) pg/ml Total Protein (6.4-8.2) gm/dl Albumin (3.4-5.0) gm/dl Globulin (2.5-4.0) gm/dl Albumin/Globulin Ratio (0.9-2) Lipase (73-393) U/L TSH (0.300-4.500) uIu/ml Urine Color Urine Appearance (Clear) Urine pH (4.5-7.5) Ur Specific Lester (1.000-1.030) Urine Protein (Negative) Urine Glucose (UA) (Negative) Urine Ketones (Negative) Urine Blood (Negative) Urine Nitrite (Negative) Urine Bilirubin (Negative) Urine Urobilinogen (Negative) Ur Leukocyte Esterase (Negative) Urine WBC (Auto) (0-5) /hpf Urine RBC (Auto) (0-4) /hpf U Hyaline Cast (Auto) (0-5) /lpf U Epithel Cells (Auto) (0-5) /lpf Urine Bacteria (Auto) (Negative) Urine Yeast Nasal Screen MRSA (PCR) Negative (Negative) Hepatitis C Ab Screen Pending 03/14/20 03/14/20 03/14/20 Range/Units 05:45 05:45 05:45 WBC 13.89 H (4.8-10.8) K/uL RBC 4.26 L (4.7-6.1) M/uL Hgb 12.9 L (14.0-18.0) g/dL Hct 38.4 L (42-52) % MCV 90.1 (80-100) fL MCH 30.3 (25-34) pg MCHC 33.6 (32-36) g/dL RDW Std Deviation 42.8 (36.4-46.3) fL RDW Coeff of Viridiana 13.0 (11.5-14.5) % Plt Count 240 (130-400) K/uL MPV 10.8 H (7.4-10.4) fL Immature Gran % (Auto) 0.4 % Neut % (Auto) 84.1 % Lymph % (Auto) 8.4 % Kaufman % (Auto) 6.8 % Eos % (Auto) 0.2 % Baso % (Auto) 0.1 % Neut # (Auto) 11.68 H (1.4-6.5) K/uL Lymph # (Auto) 1.16 L (1.2-3.4) K/uL Kaufman # (Auto) 0.94 H (0.11-0.59) K/uL Eos # (Auto) 0.03 (0-0.5) K/uL Baso # (Auto) 0.02 (0-0.2) K/uL Immature Gran # (Auto) 0.06 H (0.00-0.02) K/uL Sodium 133 L (136-145) mmol/L Potassium 3.0 L (3.5-5.1) mmol/L Chloride 96 L (98-107) mmol/L Carbon Dioxide 28 (21-32) mmol/L Anion Gap 8.0 (3-11) BUN 24 H (7-18) mg/dl Creatinine 0.94 (0.6-1.4) mg/dl Est Cr Clr Drug Dosing 116.4 ml/min Est GFR ( Amer) 99.6 Est GFR (Non-Af Amer) 85.9 BUN/Creatinine Ratio 25.8 H (10-20) Glucose 123 H (70-99) mg/dl Estimat Average Glucose Pending Hemoglobin A1c Pending Lactate (0.4-2.0) mmol/L Calcium 9.2 (8.5-10.1) mg/dl Phosphorus (2.5-4.9) mg/dl Magnesium (1.8-2.4) mg/dl Total Bilirubin 1.1 H (0.2-1) mg/dl Direct Bilirubin 0.4 H (0-0.2) mg/dl AST 22 (15-37) U/L ALT 22 (12-78) U/L Alkaline Phosphatase 63 (45-117) U/L Troponin I NT-Pro-B Natriuret Pep 299 (0-900) pg/ml Total Protein 7.5 (6.4-8.2) gm/dl Albumin 2.7 L (3.4-5.0) gm/dl Globulin (2.5-4.0) gm/dl Albumin/Globulin Ratio (0.9-2) Lipase (73-393) U/L TSH 0.671 (0.300-4.500) uIu/ml Urine Color Urine Appearance (Clear) Urine pH (4.5-7.5) Ur Specific Lester (1.000-1.030) Urine Protein (Negative) Urine Glucose (UA) (Negative) Urine Ketones (Negative) Urine Blood (Negative) Urine Nitrite (Negative) Urine Bilirubin (Negative) Urine Urobilinogen (Negative) Ur Leukocyte Esterase (Negative) Urine WBC (Auto) (0-5) /hpf Urine RBC (Auto) (0-4) /hpf U Hyaline Cast (Auto) (0-5) /lpf U Epithel Cells (Auto) (0-5) /lpf Urine Bacteria (Auto) (Negative) Urine Yeast Nasal Screen MRSA (PCR) (Negative) Hepatitis C Ab Screen 03/13/20 03/13/20 03/13/20 Range/Units 20:36 18:41 18:41 WBC (4.8-10.8) K/uL RBC (4.7-6.1) M/uL Hgb (14.0-18.0) g/dL Hct (42-52) % MCV (80-100) fL MCH (25-34) pg MCHC (32-36) g/dL RDW Std Deviation (36.4-46.3) fL RDW Coeff of Viridiana (11.5-14.5) % Plt Count (130-400) K/uL MPV (7.4-10.4) fL Immature Gran % (Auto) % Neut % (Auto) % Lymph % (Auto) % Kaufman % (Auto) % Eos % (Auto) % Baso % (Auto) % Neut # (Auto) (1.4-6.5) K/uL Lymph # (Auto) (1.2-3.4) K/uL Kaufman # (Auto) (0.11-0.59) K/uL Eos # (Auto) (0-0.5) K/uL Baso # (Auto) (0-0.2) K/uL Immature Gran # (Auto) (0.00-0.02) K/uL Sodium 130 L (136-145) mmol/L Potassium 3.1 L (3.5-5.1) mmol/L Chloride 93 L (98-107) mmol/L Carbon Dioxide 32 (21-32) mmol/L Anion Gap 5.0 (3-11) BUN 25 H (7-18) mg/dl Creatinine 1.10 (0.6-1.4) mg/dl Est Cr Clr Drug Dosing 100.6 ml/min Est GFR ( Amer) 82.4 Est GFR (Non-Af Amer) 71.1 BUN/Creatinine Ratio 22.6 H (10-20) Glucose 95 (70-99) mg/dl Estimat Average Glucose Hemoglobin A1c Lactate 1.3 (0.4-2.0) mmol/L Calcium 9.4 (8.5-10.1) mg/dl Phosphorus 3.6 (2.5-4.9) mg/dl Magnesium 2.4 (1.8-2.4) mg/dl Total Bilirubin 1.3 H (0.2-1) mg/dl Direct Bilirubin (0-0.2) mg/dl AST 17 (15-37) U/L ALT 20 (12-78) U/L Alkaline Phosphatase 75 (45-117) U/L Troponin I NT-Pro-B Natriuret Pep (0-900) pg/ml Total Protein 8.8 H (6.4-8.2) gm/dl Albumin 3.3 L (3.4-5.0) gm/dl Globulin 5.5 H (2.5-4.0) gm/dl Albumin/Globulin Ratio 0.6 L (0.9-2) Lipase 70 L (73-393) U/L TSH (0.300-4.500) uIu/ml Urine Color Dark Yellow Urine Appearance Cloudy A (Clear) Urine pH 5.0 (4.5-7.5) Ur Specific Lester 1.036 H (1.000-1.030) Urine Protein 2+ H (Negative) Urine Glucose (UA) Negative (Negative) Urine Ketones Negative (Negative) Urine Blood 2+ H (Negative) Urine Nitrite Positive A (Negative) Urine Bilirubin Negative (Negative) Urine Urobilinogen Negative (Negative) Ur Leukocyte Esterase 2+ H (Negative) Urine WBC (Auto) >30 H (0-5) /hpf Urine RBC (Auto) 0-4 (0-4) /hpf U Hyaline Cast (Auto) 1-5 (0-5) /lpf U Epithel Cells (Auto) 5-10 H (0-5) /lpf Urine Bacteria (Auto) 3+ H (Negative) Urine Yeast Not Reportable Nasal Screen MRSA (PCR) (Negative) Hepatitis C Ab Screen 03/13/20 Range/Units 18:41 WBC 15.42 H (4.8-10.8) K/uL RBC 4.66 L (4.7-6.1) M/uL Hgb 14.3 (14.0-18.0) g/dL Hct 42.0 (42-52) % MCV 90.1 (80-100) fL MCH 30.7 (25-34) pg MCHC 34.0 (32-36) g/dL RDW Std Deviation 42.6 (36.4-46.3) fL RDW Coeff of Viridiana 13.0 (11.5-14.5) % Plt Count 243 (130-400) K/uL MPV 10.6 H (7.4-10.4) fL Immature Gran % (Auto) 0.3 % Neut % (Auto) 77.5 % Lymph % (Auto) 13.1 % Kaufman % (Auto) 8.8 % Eos % (Auto) 0.2 % Baso % (Auto) 0.1 % Neut # (Auto) 11.97 H (1.4-6.5) K/uL Lymph # (Auto) 2.02 (1.2-3.4) K/uL Kaufman # (Auto) 1.35 H (0.11-0.59) K/uL Eos # (Auto) 0.03 (0-0.5) K/uL Baso # (Auto) 0.01 (0-0.2) K/uL Immature Gran # (Auto) 0.04 H (0.00-0.02) K/uL Sodium (136-145) mmol/L Potassium (3.5-5.1) mmol/L Chloride (98-107) mmol/L Carbon Dioxide (21-32) mmol/L Anion Gap (3-11) BUN (7-18) mg/dl Creatinine (0.6-1.4) mg/dl Est Cr Clr Drug Dosing ml/min Est GFR ( Amer) Est GFR (Non-Af Amer) BUN/Creatinine Ratio (10-20) Glucose (70-99) mg/dl Estimat Average Glucose Hemoglobin A1c Lactate (0.4-2.0) mmol/L Calcium (8.5-10.1) mg/dl Phosphorus (2.5-4.9) mg/dl Magnesium (1.8-2.4) mg/dl Total Bilirubin (0.2-1) mg/dl Direct Bilirubin (0-0.2) mg/dl AST (15-37) U/L ALT (12-78) U/L Alkaline Phosphatase (45-117) U/L Troponin I NT-Pro-B Natriuret Pep (0-900) pg/ml Total Protein (6.4-8.2) gm/dl Albumin (3.4-5.0) gm/dl Globulin (2.5-4.0) gm/dl Albumin/Globulin Ratio (0.9-2) Lipase (73-393) U/L TSH (0.300-4.500) uIu/ml Urine Color Urine Appearance (Clear) Urine pH (4.5-7.5) Ur Specific Lester (1.000-1.030) Urine Protein (Negative) Urine Glucose (UA) (Negative) Urine Ketones (Negative) Urine Blood (Negative) Urine Nitrite (Negative) Urine Bilirubin (Negative) Urine Urobilinogen (Negative) Ur Leukocyte Esterase (Negative) Urine WBC (Auto) (0-5) /hpf Urine RBC (Auto) (0-4) /hpf U Hyaline Cast (Auto) (0-5) /lpf U Epithel Cells (Auto) (0-5) /lpf Urine Bacteria (Auto) (Negative) Urine Yeast Nasal Screen MRSA (PCR) (Negative) Hepatitis C Ab Screen Diagnostic Findings 03/13 CT Abdomen/Pelvis IMPRESSION: 1. Severe scrotal edema. No soft tissue gas. 2. Moderate bilateral hydroceles. 3. Cholelithiasis. No gallbladder wall thickening. 4. Additional findings as described above. 03/14 CXR IMPRESSION: 1. Pulmonary vascular congestion with possible mild pulmonary edema. 2. Stable cardiomegaly. 03/14 ECHO 03/14 Scrotal US IMPRESSION: 1. Above findings consistent with bilateral epididymoorchitis. 2. Moderate bilateral hydroceles. 3. Marked skin thickening/edema within the scrotal with associated increased color flow. This favors a cellulitis. PG Care Time/CCT Total # of Minutes Spent Total Time Spent with Patient: Total time spent is greater than 50% in coordination of care (as documented) at patient's floor/unit and/or counseling patient: Coding Level of Care Code 10217 Subseq Hosp Care Lvl 3 Diagnoses Cellulitis of scrotum N49.2 UTI (urinary tract infection) N39.0 Epididymo-orchitis N45.3 Shortness of breath R06.02 Atrial fibrillation I48.91 Atrial fibrillation type: unspecified HTN (hypertension) I10 Hypertension type: essential hypertension BPH (benign prostatic hyperplasia) N40.0 Lower urinary tract symptom presence: unspecified whether lower urinary tract symptoms present Depression F32.9 Depression Type: unspecified Hypokalemia E87.6 Elevated bilirubin R17 History of hemorrhagic cerebrovascular accident (CVA) with residual deficit I69.30 DVT prophylaxis Z29.9 (1) BPH (benign prostatic hyperplasia) Lower urinary tract symptom presence: unspecified whether lower urinary tract symptoms present Qualified Code(s): N40.0 - Benign prostatic hyperplasia without lower urinary tract symptoms (2) Atrial fibrillation Atrial fibrillation type: unspecified Qualified Code(s): I48.91 - Unspecified atrial fibrillation (3) Depression Depression Type: unspecified Qualified Code(s): F32.9 - Major depressive disorder, single episode, unspecified (4) HTN (hypertension) Hypertension type: essential hypertension Qualified Code(s): I10 - Essential (primary) hypertension
[2020-03-14] MEDS ORDERED: PROMETHAZINE HCL 12.5 MG in SODIUM CHLORIDE 0.9% 50 ML IV PRN (09:20)
--- NOTE | 2020-03-14 09:32 | XRay Report ---
XR chest 1V portable CLINICAL HISTORY: sob, orthopnea COMPARISON STUDY: Chest radiograph April 05, 2019. FINDINGS: Cardiomegaly is unchanged. Mediastinal widening is unchanged since exam of April 05 9. There is no pneumothorax or pleural effusion. Lung volumes are at the lower limits of normal. No c onsolidation is identified. There is pulmonary vascular congestion with possible mild pulmonary edema . IMPRESSION: 1. Pulmonary vascular congestion with possible mild pulmonary edema. 2. Stable cardiomegaly. ACT 112: Negative or not required by law. Electronically signed by: Horace Mortensen M.D. 03/14/2020 9:31 AM
[2020-03-14] MEDS ORDERED: LIDOCAINE 2% JELLY 5 ML TUBE ONE (09:37)
--- NOTE | 2020-03-14 09:52 | CT Scan Report ---
ABDOMEN AND PELVIS CT WITH IV CONTRAST CT DOSE: 3150.03 mGy.cm HISTORY: scrotal redness/pain/swelling TECHNIQUE: Multiaxial CT images of the abdomen and pelvis were performed following the use of intrave nous contrast. A dose lowering technique was utilized adhering to the principles of ALARA. COMPARISON STUDY: None. FINDINGS: Severe scrotal edema with moderate bilateral hydroceles. No soft tissue gas identified. Lar ge body habitus with the right side of the abdomen not entirely included on this study. The heart is borderline enlarged. No pneumoperitoneum. No pneumatosis. No suspicious lytic or blastic osseous lesi ons. A few subcentimeter hypodense lesions within the liver. These are technically too small to jasmin cterize. A 2 cm gallstone. No gallbladder wall thickening. The spleen, adrenal glands, and pancreas a re within normal limits. There is mild bilateral perinephric edema. No hydronephrosis. There is 9.7 m m hypodense lesion within the upper pole the left kidney. This is also too small to characterize. No retroperitoneal lymphadenopathy. Normal caliber abdominal aorta. The bladder is unremarkable. No charbel l wall thickening or obstruction. Moderate well-formed stool within the colon. Normal appendix. IMPRESSION: 1. Severe scrotal edema. No soft tissue gas. 2. Moderate bilateral hydroceles. 3. Cholelithiasis. No gallbladder wall thickening. 4. Additional findings as described above. ACT 112: Negative or not required by law. Electronically signed by: Grupo Lehman M.D. 03/14/2020 9:51 AM
[2020-03-14] MEDS ORDERED: FUROSEMIDE 20 MG in SYRINGE 0 ML IV ONE (10:00)
[2020-03-14 10:06] LABS: Troponin I < 0.015 ng/ml (0-0.045)
[2020-03-14] MEDS ORDERED: PROMETHAZINE HCL 25 MG in SODIUM CHLORIDE 0.9% 50 ML IV PRN (11:51)
[2020-03-14] MEDS ORDERED: hydrALAZINE HCL 20 MG/ML VIAL IV PRN (11:54)
--- NOTE | 2020-03-14 12:17 | Urology Consultation ---
Date of Consultation March 14, 2020 Assessment & Plan (1) Cellulitis of scrotum: Patient admitted with scrotal swelling and bilateral hydroceles possible orchitis with cellulitis. Patient has moderate fluid retention issues. Is undergoing supportive care with broad-spectrum antibiotics. Is currently afebrile. Patient had mild elevation white count. Patient is improving with supportive care. Discussed concerns and issues. Discussed possible causes and concerns. Discussed treatment. Discussed options moving forward. Imaging was all reviewed interpreted by myself. Patient complicated medical and surgical history was reviewed and summarized above. No signs of air or abscess formation on imaging. Will need to monitor. May need scrotal ultrasound prior to discharge. Plan will be to maintain with supportive care and antibiotics. Limited conversation and education with patient as he was attempting to sleep and limited significantly interviewing and exam. Did discuss options at length with nursing including the conservative management. Discussed scrotal support when ambulating, Scrotal elevation when sitting/laying flat, Ice (20 mins on/20 mins off) when acutely swollen or tender, Heating Pad (20 mins on/20 mins off) when sore, and avoidance of injury/protection when active. Did not find any concern for malignancy or lesions within the testicle. Discussed UTI and retention/incomplete emptying and lower urinary tract issues. Discussed other concerns and issues. Patient was straightd cath for over 800 cc. Patient is likely having emptying issues this may have contributed to UTI which possibly led to the orchitis. Will need to consider Valdez catheter placement if continues to have high residual We will monitor call if any changes fevers chills or other issues History of Present Illness Attending Physician: Josey Fernandez MD History of Present Illness New consultation for patient with UTI/orchitis, discomfort, and ill feelings. Upon assessment patient was sleeping/resting in bed on initiation of questioning patient abruptly stated that he was sleeping. Was no longer answering questions and significantly limited history taking. Majority of information from reports and ER, H&P, and nursing notes. Discussed with nursing as well. Patient developed worsening issues with scrotal swelling and discomfort with the development of sudden onset of pain in testicles and scrotum radiating into groin and back in waves comes and goes. Can be severe at times. Discussed and reviewed patient's family history for any history of issues, infections, and disease. Also, discussed patient's medical/surgery history especially related to any history of urinary issues or stone disease. No family history of testicular cancer Patient was admitted and is undergoing observation with broad spectrum IV antibiotics. Allergies Allergy/AdvReac Type Severity Reaction Status Date / Time coffee (Coffea arabica) Allergy Unknown ON CENTRE Verified 03/13/20 20:21 CREST LIST strawberry Allergy Unknown ON CENTRE Verified 03/13/20 20:21 CREST LIST ENVIRONMENT Allergy Intermediate CONGESTION Uncoded 03/13/20 20:22 Home Medications Home Medications Medication Instructions Recorded Confirmed Type acetaminophen 325 mg capsule 650 mg PO Q6H PRN MDD 3 /12/23/19 03/13/20 History HOURS benzocaine 15 mg-menthol 2.3 mg 1 tari PO DIRECTED PRN 12/23/19 03/13/20 History lozenges chlorthalidone 25 mg tablet 12.5 mg PO QAM tab 12/23/19 03/13/20 History diphenhydramine HCl 25 mg capsule 25 mg PO QPM cap 12/23/19 03/13/20 History famotidine 20 mg tablet 20 mg PO BID 12/23/19 03/13/20 History finasteride 5 mg tablet 5 mg PO QAM 12/23/19 03/13/20 History fluoxetine 20 mg capsule 20 mg PO QAM 12/23/19 03/13/20 History labetalol 100 mg tablet 50 mg PO BID tab 12/23/19 03/13/20 History loperamide 2 mg capsule 2 mg PO Q6H PRN 12/23/19 03/13/20 History losartan 25 mg tablet 25 mg PO QAM 12/23/19 03/13/20 History methyl salicylate 15 %-menthol 10 1 appln TOP TID PRN 12/23/19 03/13/20 History % topical cream rivaroxaban 10 mg tablet 10 mg PO QPM 12/23/19 03/13/20 History tamsulosin 0.4 mg capsule 0.4 mg PO HS 12/23/19 03/13/20 History melatonin 3 mg PO HS 03/13/20 03/13/20 History nystatin 1 applic TOPICAL BID 03/13/20 03/13/20 History ondansetron HCl [Zofran] 4 mg PO Q6H PRN 03/13/20 03/13/20 History sennosides-docusate sodium 1 tab-cap PO QPM 03/13/20 03/13/20 History [Senokot-S] Patient History Medical History Atrial fibrillation BPH (benign prostatic hyperplasia) Depression Diabetes HTN (hypertension) Left hemiparesis Morbid obesity Family History Other Cancer No pertinent family history in first degree relatives Stroke Social History Smoking Status: Never smoker Hx Alcohol Use: Yes Alcohol type: beer Hx Substance Use: No Preferred Language: Spanish Communication Ability: Effective Chick Grader Required: No Beliefs That Will Affect Care: None marital status: / Current Living Situation: [facility] Current Living Situation Comment: [facility] Feels Safe at Home: Yes Assistive Devices: Wheelchair Review of Systems Review of Systems: All systems reviewed & are unremarkable except as noted in HPI & below Physical Exam Physical Exam: General: Arousable in acute distress. Chronic Medical issues. Obese Limited secondary to patient's refusal for interview or assessment. HEENT: Normocephalic. Inspection normal. Cranial Nerves 2-12 Grossly intact with some hearing issues. Normal inspection of face. Normal inspection of neck. Psychologic: Normal affect. Baseline issues with memory. Respiratory: Nonlabored. No use of accessory muscles. No tachypnea or dyspnea. Cardiovascular: No tachycardia Skin: [place] and Dry. No rashes or visible lesions. Extremities/Lymphatics: Minor Mobility issues. Slow Gait. Abdomen: Obese and moderately distended. No rebound or guarding. : Significant scrotal edema [facility] Data [facility]) Vital Signs (Past 12 Hours) Vital Signs Temp Pulse Resp BP Pulse Ox 03/14/20 07:13 36.8 C 87 16 174/87 H 94 PG Care Time/CCT Total # of Minutes Spent Total Time Spent with Patient: Total time spent is greater than 50% in coordination of care (as documented) at patient's floor/unit and/or counseling patient: Coding Level of Care Code 38685 Inpt Consult Level 5 Diagnoses Cellulitis of scrotum N49.2
--- NOTE | 2020-03-14 13:40 | Ultrasound Report ---
TESTICULAR ULTRASOUND HISTORY: scrotal edema, swelling, erythema COMPARISON: Abdomen and pelvis CT 03/13/2020. FINDINGS: Right testis: 4.2 x 2.6 x 3.4 cm. There are no intratesticular masses. Increased color flow. A few sm all epididymal head cyst. Moderate hydrocele. Left testis: 4.7 x 2.8 x 3.2 cm. There are no intratesticular masses. Increased color flow. A few sma ll epididymal head cyst. Moderate hydrocele. Miscellaneous: Marked thickening/edema throughout the scrotum with increased color flow. IMPRESSION: 1. Above findings consistent with bilateral epididymoorchitis. 2. Moderate bilateral hydroceles. 3. Marked skin thickening/edema within the scrotal with associated increased color flow. This favors a cellulitis. ACT 112: Negative or not required by law. Electronically signed by: Grupo Lehman M.D. 03/14/2020 1:38 PM
--- NOTE | 2020-03-14 13:45 | XCELERA ---
[id number]
[2020-03-14 15:29] LABS: Creatine Kinase 118 U/L (39-308)
[2020-03-14] MEDS: MELATONIN 3 MG TAB PO SCH (21:14)
[2020-03-14] MEDS: TAMSULOSIN HCL 0.4 MG CAP PO SCH (21:14)
[2020-03-14] MEDS: CLOTRIMAZOLE 1% CR 15 GM TUBE EXT SCH (21:14)
[2020-03-14] MEDS: diphenhydrAMINE Capsule 25 MG CAP PO SCH (21:14)
[2020-03-14] MEDS: DOCUSATE SODIUM/SENNA 50/8.6MG TAB PO SCH (21:16)
[2020-03-14] MEDS: RIVAROXABAN 10 MG TABLET PO SCH (21:16)
[2020-03-14] MEDS: CAPSAICIN CR 0.075% 60 GM TUBE EXT PRN (21:17)
--- NOTE | 2020-03-15 06:13 | Electrocardiogram Report ---
Test Reason : Blood Pressure : / mmHG Vent. Rate : 086 BPM Atrial Rate : 086 BPM P-R Int : 162 ms QRS Dur : 168 ms QT Int : 430 ms P-R-T Axes : 039 -55 094 degrees QTc Int : 514 ms Sinus rhythm with Premature atrial complexes with Aberrant conduction Right bundle branch block Left anterior fascicular block Bifascicular block Left ventricular hypertrophy with repolarization abnormality Abnormal ECG When compared with ECG of 05-APR-2019 09:55, Premature atrial complexes are now Present Confirmed by Festus Renee ([id number]) on 03/15/2020 6:13:21 AM Referred By: [facility] Confirmed By:Festus Renee
[2020-03-15 06:24] LABS: Estimated Average Glucose 111 mg/dl; Hemoglobin A1C 5.5 % (4.5-5.6)
[2020-03-15] MEDS: ACETAMINOPHEN 325 MG TAB PO PRN (06:37)
[2020-03-15 07:14] LABS: Basophils # (auto) 0.02 K/uL (0-0.2); Basophils % (auto) 0.2 %; Eosinophils # (auto) 0.12 K/uL (0-0.5); Eosinophils % (auto) 1.2 %; Hematocrit (blood only) 36.8 % (42-52); Immature Granulocytes # (auto) 0.05 K/uL (0.00-0.02); Immature Granulocytes % (auto) 0.5 %; Lymphocytes # (auto) 0.71 K/uL (1.2-3.4); Lymphocytes % (auto) 7.3 %; Mean Corpuscular Hemoglobin 30.4 pg (25-34); Mean Corpuscular Hgb Conc 32.6 g/dL (32-36); Mean Corpuscular Volume 93.2 fL (80-100); Mean Platelet Volume 10.6 fL (7.4-10.4); Monocytes # (auto) 1.41 K/uL (0.11-0.59); Monocytes % (auto) 14.4 %; Neutrophils # (auto) 7.45 K/uL (1.4-6.5); Neutrophils % (auto) 76.4 %; Platelet Count 257 K/uL (130-400); RDW Standard Deviation 44.8 fL (36.4-46.3); Red Blood Count 3.95 M/uL (4.7-6.1); White Blood Count 9.76 K/uL (4.8-10.8)
[2020-03-15 07:46] LABS: Albumin Level 2.4 gm/dl (3.4-5.0); Bilirubin Direct 0.2 mg/dl (0-0.2); Calcium 8.5 mg/dl (8.5-10.1); Creatinine Clr Calc Pharmacy 130.2 ml/min; Est GFR (Non-African American) 93.2; Magnesium 2.5 mg/dl (1.8-2.4); Potassium 3.2 mmol/L (3.5-5.1)
[2020-03-15 07:49] LABS: Bilirubin,Total 0.8 mg/dl (0.2-1)
[2020-03-15] MEDS: FINASTERIDE 5 MG TAB PO SCH (08:24)
[2020-03-15] MEDS: LABETALOL HCL 100 MG TAB PO SCH ×2 (08:25→21:01)
[2020-03-15] MEDS: LOSARTAN POTASSIUM 25 MG TAB PO SCH (08:25)
[2020-03-15] MEDS: FAMOTIDINE 20 MG TAB PO SCH ×2 (08:25→21:03)
[2020-03-15] MEDS: FLUoxetine HCL 20 MG CAP PO SCH (08:25)
[2020-03-15] MEDS: PIPERACILLIN/TAZOBACTAM 4.5 GM in DEXTROSE 5% 100 ML IV SCH ×2 (08:32→16:51)
[2020-03-15] MEDS ORDERED: POTASSIUM CHLORIDE 20 MEQ TABCR PO ONE (09:00)
[2020-03-15] MEDS: CLOTRIMAZOLE 1% CR 15 GM TUBE EXT SCH ×2 (09:37→21:04)
[2020-03-15] MEDS: NYSTATIN CR 15 GM TUBE EXT SCH ×2 (09:37→21:04)
--- NOTE | 2020-03-15 13:24 | Hospitalist Progress Note ---
Date of Service March 15, 2020 Assessment & Plan (1) Cellulitis of scrotum: Patient currently on Zosyn. Leukocytosis has resolved No fever Ultrasound of the scrotum was completed and shows soft tissue cellulitis Continue antibiotics Urology following (2) UTI (urinary tract infection): Culture with E. coli Continue Zosyn Afebrile Valdez catheter in place Follow strict I's and O's (3) Epididymo-orchitis: Ultrasound completed shows no torsion Valdez catheter in place Continue Zosyn Urology following Further management per urology (4) Shortness of breath: Resolved. Oxygenating well on room air (5) Atrial fibrillation: Continue Xarelto Continue labetalol Rate controlled on exam (6) HTN (hypertension): Well-controlled today with a systolic pressure of 138 and diastolic pressure of 88 Continue chlorthalidone 12.5 mg p.o. daily. Patient is also on labetalol 50 mg p.o. twice daily as well as losartan 25 mg p.o. every morning. Patient is also on an alpha-avel with finasteride 5 mg daily for his BPH Continue to follow vital signs per protocol (7) BPH (benign prostatic hyperplasia): Valdez catheter in place Continue finasteride Urology following (8) Depression: Status post CVA with right-sided hemiparesis several years ago and residing at [facility] Continue fluoxetine Continue melatonin for sleep (9) Hypokalemia: Magnesium is 2.5 Potassium this morning is 3.2. Repleted with 40 mEq of potassium chloride by mouth Follow serial labs (10) Elevated bilirubin: Resolved Patient denies current ethanol abuse history No abdominal pain (11) History of hemorrhagic cerebrovascular accident (CVA) with residual deficit: CVA 03/2019 Residual right hemiparesis No current headache or other new findings Continue supportive care Request PT/OT evaluation treatment (12) DVT prophylaxis: Anticoagulated with Xarelto We will begin to mobilize using PT OT Please refer to Dr. Gaitan's addendum for further recommendations Admission and Anticipated Discharge Date Admission Date: March 13, 2020 Subjective Attending: Dr. Tu Gaitan This is a 64-year-old male from [facility]. He presented with a scrotal abscess and infection. He is currently receiving antibiotics for a complicated UTI with E. coli. The patient has a history of CVA and right hem iparesis, hence his residency at [facility]. 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 He has not been employed since his stroke. During this course of hospital stay he does have atrial fibrillation as well as hypokalemia. He is anticoagulated with Xarelto. He denies any fever or chills. He has chronic nausea for about the last 2 months but denies any vomit ing. Urology has been consulted and is following him. White count is within normal limits. Electrolytes are within normal limits with the exception of a potassium of 3.2. Blood cultures x2 are negative to date. The patient denies any shortness of breath. He has no chest pain. Scrotal pain is controlled as long as he does not move about. He has no lower extremity pain although he does have chronic venous insufficiency. He denies tobacco or ethanol abuse. He has no other acute complaints. Review of Systems Review of Systems: All systems reviewed & are unremarkable except as noted in Subjective Physical Exam Physical Exam: GENERAL : No acute distress. Flat affect EYES: No icterus, gaze conjugate. Pupils equal round react to light. NOSE: No evidence of epistaxis MOUTH: No lesions or candidiasis NECK: Supple LUNGS: CTA B/L, no wheezes, rales or rhonchi HEART: Regular, rate controlled ABDOMEN: Soft, NT, ND, BS Present : Valdez catheter is in place. Scrotal edema is improved per record and per patient report. EXTREMITIES: No LE edema, pedal pulses intact and equal bilateral lower extremities. Chronic venous stasis bilaterally. NEURO: A&OX3 Results & Data Results & Data ([facility]) Vital Signs (Past 12 Hours) Vital Signs Temp Pulse Resp BP Pulse Ox 03/15/20 06:58 37.2 C 62 16 138/88 93 Laboratory Results 03/15/20 06:47 03/15/20 06:47 Diagnostic Findings TESTICULAR ULTRASOUND HISTORY: scrotal edema, swelling, erythema COMPARISON: Abdomen and pelvis CT 03/13/2020. FINDINGS: Right testis: 4.2 x 2.6 x 3.4 cm. There are no intratesticular masses. Increased color flow. A few small epididymal head cyst. Moderate hydrocele. Left testis: 4.7 x 2.8 x 3.2 cm. There are no intratesticular masses. Increased color flow. A few small epididymal head cyst. Moderate hydrocele. Miscellaneous: Marked thickening/edema throughout the scrotum with increased color flow. IMPRESSION: 1. Above findings consistent with bilateral epididymoorchitis. 2. Moderate bilateral hydroceles. 3. Marked skin thickening/edema within the scrotal with associated increased color flow. This favors a cellulitis. ACT 112: Negative or not required by law. Electronically signed by: Grupo Lehman M.D. 03/14/2020 1:38 PM PG Care Time/CCT Total # of Minutes Spent Total Time Spent with Patient: Total time spent is greater than 50% in coordination of care (as documented) at patient's floor/unit and/or counseling patient: 25 minutes Coding Level of Care Code 19643 Subseq Hosp Care Lvl 2 Diagnoses Cellulitis of scrotum N49.2 UTI (urinary tract infection) N39.0 Epididymo-orchitis N45.3 Shortness of breath R06.02 Atrial fibrillation I48.91 Atrial fibrillation type: unspecified HTN (hypertension) I10 Hypertension type: essential hypertension BPH (benign prostatic hyperplasia) N40.0 Lower urinary tract symptom presence: unspecified whether lower urinary tract symptoms present Depression F32.9 Depression Type: unspecified Hypokalemia E87.6 Elevated bilirubin R17 History of hemorrhagic cerebrovascular accident (CVA) with residual deficit I 69.30 DVT prophylaxis Z29.9 Time Spent (min) 25 (1) Atrial fibrillation Atrial fibrillation type: unspecified Qualified Code(s): I48.91 - Unspecified atrial fibrillation (2) HTN (hypertension) Hypertension type: essential hypertension Qualified Code(s): I10 - Essential (primary) hypertension (3) BPH (benign prostatic hyperplasia) Lower urinary tract symptom presence: unspecified whether lower urinary tract symptoms present Qualified Code(s): N40.0 - Benign prostatic hyperplasia without lower urinary tract symptoms (4) Depression Depression Type: unspecified Qualified Code(s): F32.9 - Major depressive disorder, single episode, unspecified
[2020-03-15] MEDS: CAPSAICIN CR 0.075% 60 GM TUBE EXT PRN (16:50)
--- NOTE | 2020-03-15 16:51 | Urology Progress Note ---
Date of Service March 15, 2020 Assessment & Plan (1) Cellulitis of scrotum: 64yo M with multiple comorbidities admitted with scrotal swelling and UTI -Reviewed plan of care with Dr. Porter -Afebrile, WBC and Creatinine are stable -Urine culture positive with E.coli -Scrotal ultrasound with b/l epididymoorchitis, moderate bilateral hydroceles, marked skin thickening/edema within scrotum favoring cellulitis -Recommend continue with supportive care and broad spectrum antibiotics -Continue Valdez catheter -Continue Flomax and Finasteride -Will continue to follow while inpatient Admission and Anticipated Discharge Date Admission Date: March 13, 2020 Subjective Patient examined at bedside this AM Awake, resting in bed on arrival Valdez catheter intact/patent, draining clear, yellow urine Some scrotal discomfort, controlled as long as he does not move much Denies fevers or chills Tolerating PO diet without nausea or vomiting Offers no additional complaints today Chart review: Afebrile WBC 9.76 Cr 0.84 Hgb 12.0 Urine culture -Positive with E.coli - Continues on IV Zosyn Scrotal US (03/14)- IMPRESSION: 1. Findings consistent with bilateral epididymoorchitis. 2. Moderate bilateral hydroceles. 3. Marked skin thickening/edema within the scrotal with associated increased color flow. This favors a cellulitis. Review of Systems Constitutional: as per Subjective / HPI Gastrointestinal: as per Subjective / HPI Genitourinary: + as per Subjective / HPI Physical Exam Constitutional: + obese; no acute distress Neck: normal visual inspection Respiratory: normal respiratory effort and able to speak in complete sentences Musculoskeletal: Head/Neck/Chest: normocephalic Skin: Warm and dry Neurologic: awake; not confused Psychiatric: Orientation: alert and oriented x 3 Genitourinary: Valdez catheter intact/patent, draining clear, yellow urine Scrotal edema and erythema noted Results & Data ([facility]) Vital Signs (Past 12 Hours) Vital Signs Temp Pulse Resp BP Pulse Ox 03/15/20 06:58 37.2 C 62 16 138/88 93 PG Care Time/CCT Total # of Minutes Spent Total Time Spent with Patient: Total time spent is greater than 50% in coordination of care (as documented) at patient's floor/unit and/or counseling patient: Coding Level of Care Code 26350 Subseq Hosp Care Lvl 2 Diagnoses Cellulitis of scrotum N49.2
[2020-03-15] MEDS: ONDANSETRON INJ 2 MG/ML 2 ML VIAL IV PRN (20:34)
[2020-03-15] MEDS: DOCUSATE SODIUM/SENNA 50/8.6MG TAB PO SCH (21:01)
[2020-03-15] MEDS: MELATONIN 3 MG TAB PO SCH (21:01)
[2020-03-15] MEDS: TAMSULOSIN HCL 0.4 MG CAP PO SCH (21:01)
[2020-03-15] MEDS: diphenhydrAMINE Capsule 25 MG CAP PO SCH (21:01)
[2020-03-15] MEDS: RIVAROXABAN 10 MG TABLET PO SCH (21:02)
[2020-03-16] MEDS: PIPERACILLIN/TAZOBACTAM 4.5 GM in DEXTROSE 5% 100 ML IV SCH ×3 (01:00→16:23)
[2020-03-16] MEDS: ACETAMINOPHEN 325 MG TAB PO PRN ×3 (05:26→20:03)
[2020-03-16] MEDS: FLUoxetine HCL 20 MG CAP PO SCH (07:56)
[2020-03-16] MEDS: LOSARTAN POTASSIUM 25 MG TAB PO SCH (07:56)
[2020-03-16] MEDS: FAMOTIDINE 20 MG TAB PO SCH ×2 (07:56→20:05)
[2020-03-16] MEDS: FINASTERIDE 5 MG TAB PO SCH (07:56)
[2020-03-16] MEDS: LABETALOL HCL 100 MG TAB PO SCH ×2 (07:57→20:04)
[2020-03-16] MEDS: NYSTATIN CR 15 GM TUBE EXT SCH ×2 (07:58→20:05)
[2020-03-16] MEDS: CLOTRIMAZOLE 1% CR 15 GM TUBE EXT SCH ×2 (07:58→20:05)
[2020-03-16 08:24] LABS: BUN Creatinine Ratio 22.9 (10-20); Calcium 8.8 mg/dl (8.5-10.1); Creatinine Clr Calc Pharmacy 142.1 ml/min; Est GFR (African American) 111.9; Est GFR (Non-African American) 96.6; Potassium 3.7 mmol/L (3.5-5.1)
--- NOTE | 2020-03-16 10:58 | Urology Progress Note ---
Date of Service March 16, 2020 Assessment & Plan (1) Epididymo-orchitis: Assessment Epididymal orchitis Patient slowly improving Would transition to oral antibiotics for 2 weeks total antibiotic coverage Would expect scrotal pain to go away before the edema subsides Admission and Anticipated Discharge Date Admission Date: March 13, 2020 Subjective Patient is afebrile vital signs are stable He says he is feeling better since his admission Scrotal pain is less He is not sure if the scrotal edema is less Valdez catheter patent draining clear yellow urine Urine culture positive for E. coli pansensitive Physical Exam Physical Exam: Temperature 36.7 pulse 68 respirate 16 blood pressure 125/76 Neurologically is alert and oriented Respiratory-no distress Abdomen benign Still has scrotal erythema and scrotal wall edema Results & Data ([facility]) Vital Signs (Past 12 Hours) Vital Signs Temp Pulse Resp BP Pulse Ox 03/16/20 07:18 36.7 C 68 16 125/76 93 Laboratory Results Laboratory Results - last 24 hr 03/16/20 03/16/20 07:36 07:36 Sodium 135 L Potassium 3.7 D Chloride 101 Carbon Dioxide 30 Anion Gap 4.0 BUN 18 Creatinine 0.77 Est Cr Clr Drug Dosing 142.1 Est GFR ( Amer) 111.9 Est GFR (Non-Af Amer) 96.6 BUN/Creatinine Ratio 22.9 H Glucose 108 H Calcium 8.8 Procalcitonin 0.11 PG Care Time/CCT Total # of Minutes Spent Total Time Spent with Patient: Total time spent is greater than 50% in coordination of care (as documented) at patient's floor/unit and/or counseling patient: Coding Level of Care Code 85548 Subseq Hosp Care Lvl 1 Diagnoses Epididymo-orchitis N45.3
[2020-03-16] MEDS ORDERED: hydrALAZINE HCL 20 MG/ML VIAL IV PRN (17:46)
--- NOTE | 2020-03-16 17:48 | Hospitalist Progress Note ---
Date of Service March 16, 2020 Assessment & Plan (1) Cellulitis of scrotum: Patient day #4 IV Zosyn. Urine culture with E. coli Leukocytosis has resolved No fever Patient with diarrhea negative for C. difficile Continue Zosyn for now. Consider changing to Bactrim tomorrow Urology following (2) UTI (urinary tract infection): Culture with E. coli Day #4 IV Zosyn Anticipate changing to Bactrim tomorrow Afebrile Valdez catheter in place Follow strict I's and O's (3) Epididymo-orchitis: Ultrasound completed shows no torsion Valdez catheter in place Day #4 of Zosyn. Change to Bactrim tomorrow Urology following (4) Shortness of breath: Resolved. Oxygenating well on room air (5) Atrial fibrillation: Continue Xarelto Continue labetalol Rate controlled on exam (6) HTN (hypertension): Episodic hypertension in the 150s to 180s which appear to be related to pain Continue chlorthalidone 12.5 mg p.o. daily. Patient is also on labetalol 50 mg p.o. twice daily as well as losartan 25 mg p.o. every morning. Patient is also on an alpha-avel with finasteride 5 mg daily for his BPH We will add hydralazine 5 mg IV every 8 hours for systolic blood pressure greater than 160 Continue to follow vital signs per protocol (7) BPH (benign prostatic hyperplasia): Valdez catheter in place Continue finasteride Urology following (8) Depression: Status post CVA with hemiparesis several years ago and residing at [facility] Continue fluoxetine Continue melatonin for sleep (9) Hypokalemia: Magnesium is 2.5 Potassium this morning is 3.7. Follow serial labs (10) Elevated bilirubin: Resolved Patient denies current ethanol abuse history No abdominal pain (11) History of hemorrhagic cerebrovascular accident (CVA) with residual d eficit: CVA 03/2019 Residual hemiparesis No current headache or other new findings Continue supportive care PT/OT evaluation treatment (12) DVT prophylaxis: Anticoagulated with Xarelto We will begin to mobilize using PT OT (13) Diarrhea: Admission and Anticipated Discharge Date Admission Date: March 13, 2020 Subjective Attending: Dr. Tu Gaitan This is a 64-year-old male admitted 03/13/2020 with cellulitis of the scrotum. Scrotal ultrasound revealed b/l epididymoorchitis, moderate bilateral hydroceles, marked skin thickening/edema. Today is day #4 of Zosyn. Patient is afebrile. Procalcitonin still slightly elevated at 0.11. Patient does have improvement since beginning antibacterial treatment. Patient is currently a resident at [facility]. He reports mostly sleeping in a recliner. Patient chief complaint today is watery diarrhea. Samples were sent for micr obiology and were negative for C. difficile toxin. Currently in orders in place for stool cultures. Patient denies any fever, sweats, chills, rigors. No chest pain or tightness. No shortness of breath. He has a flat affect. He has no other acute complaints. Review of Systems Review of Systems: All systems reviewed & are unremarkable except as noted in Subjective Physical Exam Physical Exam: GENERAL : No acute distress EYES: No icterus, gaze conjugate NOSE: No evidence of epistaxis MOUTH: No lesions or candidiasis NECK: Supple LUNGS: CTA B/L, no wheezes, rales or rhonchi. Good inspiratory effort HEART: Regular, rate controlled ABDOMEN: Soft, NT, ND, BS Present EXTREMITIES: No LE edema, pedal pulses intact and equal bilaterally. There is bilateral venous stasis noted NEURO: A&OX3 Results & Data Results & Data ([facility]) Vital Signs (Past 12 Hours) Vital Signs Temp Pulse Resp BP Pulse Ox 03/16/20 16:27 36.2 C L 55 L 16 174/88 H 94 03/16/20 07:18 36.7 C 68 16 125/76 93 Laboratory Results 03/15/20 06:47 03/16/20 07:36 Laboratory Tests 03/16/20 07:36 Procalcitonin 0.11 Laboratory Tests 03/16/20 Unknown Stl C. diff Tox B Gene Negative Cdiff Gene Diagnostic Findings No further diagnostic imaging since 03/14/2020 PG Care Time/CCT Total # of Minutes Spent Total Time Spent with Patient: Total time spent is greater than 50% in coord ination of care (as documented) at patient's floor/unit and/or counseling patient: 50 minutes including 30 minutes at bedside Coding Level of Care Code 98178 Subseq Hosp Care Lvl 2 History Expanded Problem Focused Exam Expanded Problem Focused Medical Decision Making Moderate Complexity Diagnoses Cellulitis of scrotum N49.2 UTI (urinary tract infection) N39.0 Epididymo-orchitis N45.3 Shortness of breath R06.02 Atrial fibrillation I48.91 Atrial fibrillation type: unspecified HTN (hypertension) I10 Hypertension type: essential hypertension BPH (benign prostatic hyperplasia) N40.0 Lower urinary tract symptom presence: unspecified whether lower urinary tract symptoms present Depression F32.9 Depression Type: unspecified Hypokalemia E87.6 Elevated bilirubin R17 History of hemorrhagic cerebrovascular accident (CVA) with residual deficit I69.30 DVT prophylaxis Z29.9 Diarrhea R19.7 Time Spent (min) 50 (1) Atrial fibrillation Atrial fibrillation type: unspecified Qualified Code(s): I48.91 - Unspecified atrial fibrillation (2) HTN (hypertension) Hypertension type: essential hypertension Qualified Code(s): I10 - Essential (primary) hypertension (3) BPH (benign prostatic hyperplasia) Lower urinary tract symptom presence: unspecified whether lower urinary tract symptoms present Qualified Code(s): N40.0 - Benign prostatic hyperplasia without lower urinary tract symptoms (4) Depression Depression Type: unspecified Qualified Code(s): F32.9 - Major depressive disorder, single episode, unspecified
[2020-03-16] MEDS: DOCUSATE SODIUM/SENNA 50/8.6MG TAB PO SCH (20:05)
[2020-03-16] MEDS: RIVAROXABAN 10 MG TABLET PO SCH (20:05)
[2020-03-16] MEDS: TAMSULOSIN HCL 0.4 MG CAP PO SCH (20:05)
[2020-03-16] MEDS: diphenhydrAMINE Capsule 25 MG CAP PO SCH (20:05)
[2020-03-16] MEDS: MELATONIN 3 MG TAB PO SCH (21:23)
[2020-03-17] MEDS: PIPERACILLIN/TAZOBACTAM 4.5 GM in DEXTROSE 5% 100 ML IV SCH ×3 (00:18→15:40)
[2020-03-17 08:08] LABS: Calcium 9.2 mg/dl (8.5-10.1); Creatinine Clr Calc Pharmacy 145.9 ml/min; Est GFR (African American) 113.2; Est GFR (Non-African American) 97.6; Potassium 3.6 mmol/L (3.5-5.1)
[2020-03-17] MEDS: FLUoxetine HCL 20 MG CAP PO SCH (08:34)
[2020-03-17] MEDS: LABETALOL HCL 100 MG TAB PO SCH ×2 (08:34→20:23)
[2020-03-17] MEDS: LOSARTAN POTASSIUM 25 MG TAB PO SCH (08:34)
[2020-03-17] MEDS: FAMOTIDINE 20 MG TAB PO SCH ×2 (08:35→20:24)
[2020-03-17] MEDS: FINASTERIDE 5 MG TAB PO SCH (08:35)
[2020-03-17] MEDS: ACETAMINOPHEN 325 MG TAB PO PRN (08:36)
--- NOTE | 2020-03-17 08:45 | Urology Progress Note ---
Date of Service March 17, 2020 Assessment & Plan (1) Epididymo-orchitis: gradually improving hopeful for a transition to oral abx now diarrhea is moderately problematic, but c. dif neg once transitioned to PO, likely can return to [place] (bactrim may be better than cipro or some of the alternatives) I have discussed with the patient that this will likely take several weeks to totally resolve at present, I don't see any indication for surgical intervention with that in mind, we will follow from the periphery, but if he remains in house, please let us know if he worsens clinically Admission and Anticipated Discharge Date Admission Date: March 13, 2020 Subjective modest subjective improvement still with significant tenderness and discomfort of the scrotum (L >R) still with loose BMs no hematuria or dysuria still on IV abx now - planning to transition later today Physical Exam Physical Exam: erythema of the scrotum with an indurated and tender left testis -no fluctuance, no severe skin breakdown now Constitutional: well developed and well nourished Respiratory: no respiratory distress Cardiovascular: Extremities: no pedal edema Gastrointestinal (Abdomen): Inspection/Auscultation: abdomen normal to inspection Results & Data ([facility]) Vital Signs (Past 12 Hours) Vital Signs Temp Pulse Resp BP Pulse Ox 03/17/20 07:18 36.7 C 73 18 161/87 H 95 03/16/20 23:15 36.5 C 16 153/82 H 95 PG Care Time/CCT Total # of Minutes Spent Total Time Spent with Patient: Total time spent is greater than 50% in coordination of care (as documented) at patient's floor/unit and/or counseling patient: Coding Level of Care Code 12518 Subseq Hosp Care Lvl 2 Diagnoses Epididymo-orchitis N45.3
[2020-03-17] MEDS: CLOTRIMAZOLE 1% CR 15 GM TUBE EXT SCH ×2 (09:29→20:23)
[2020-03-17] MEDS: NYSTATIN CR 15 GM TUBE EXT SCH ×2 (09:29→20:27)
[2020-03-17] MEDS ORDERED: SULFAMETHOXAZOLE/TRIMETHOPRIM DS 800/160MG TAB PO ONE (16:15)
--- NOTE | 2020-03-17 16:19 | Hospitalist Progress Note ---
Date of Service March 17, 2020 Assessment & Plan (1) Cellulitis of scrotum: Patient day #5 IV Zosyn. Urine culture with E. coli Leukocytosis has resolved No fever Patient with diarrhea negative for C. difficile We will discontinue Zosyn after this afternoon dose. Change to Bactrim tonight Urology following (2) UTI (urinary tract infection): Culture with E. coli Day #5 IV Zosyn Changed to Bactrim DS every 12 hours today Follow-up with urology in 10 days Afebrile Valdez catheter in place. We can do a voiding trial if the patient is willing to have Valdez reinserted or patient can keep Valdez in place until follow-up exam with urology in 10 days. Follow strict I's and O's (3) Epididymo-orchitis: Ultrasound completed shows no torsion Valdez catheter in place Day #5 of Zosyn. Change to Bactrim Q12H tonight Follow-up with urology in 10 days (4) Shortness of breath: Resolved. Oxygenating well on room air (5) Atrial fibrillation: Continue Xarelto Continue labetalol Rate controlled on exam (6) HTN (hypertension): Episodic hypertension in the 150s to 180s which appear to be related to pain Continue chlorthalidone 12.5 mg p.o. daily. Patient is also on labetalol 50 mg p.o. twice daily as well as losartan 25 mg p.o. every morning. Patient is also on an alpha-avel with finasteride 5 mg daily for his BPH Continue hydralazine 5 mg IV every 8 hours for systolic blood pressure greater than 160 Continue to follow vital signs per protocol (7) BPH (benign prostatic hyperplasia): Valdez catheter in place Continue finasteride Urology following (8) Depression: Status post CVA with hemiparesis several years ago and residing at 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 tomorrow (12) DVT prophylaxis: Anticoagulated with Xarelto Has not been able to ambulate secondary to scrotal cellulitis Encourage out of bed to chair (13) Diarrhea: Admission and Anticipated Discharge Date Admission Date: March 13, 2020 Subjective Attending: Dr. Tu Gaitan Patient is showing improvement. Valdez catheter is in place and draining well. There is no gross hematuria. He does still complain of some belly upset but no vomiting. He has no fever or chills. He has no new acute complaints Review of Systems Review of Systems: All systems reviewed & are unremarkable except as noted in Subjective Physical Exam Physical Exam: GENERAL : No acute distress EYES: No icterus, gaze conjugate NOSE: No evidence of epistaxis MOUTH: No lesions or candidiasis NECK: Supple LUNGS: CTA B/L, no wheezes, rales or rhonchi HEART: Regular, rate controlled ABDOMEN: Soft, NT, ND, BS Present EXTREMITIES: No LE edema, pedal pulses intact NEURO: A&OX3 Results & Data Results & Data ([facility]) Vital Signs (Past 12 Hours) Vital Signs Temp Pulse Resp BP BP Pulse Ox 03/17/20 15:24 36.6 C 59 L 16 139/81 95 03/17/20 07:18 36.7 C 73 18 161/87 H 95 Laboratory Results 03/15/20 06:47 03/17/20 06:55 Diagnostic Findings No new diagnostic imaging PG Care Time/CCT Total # of Minutes Spent Total Time Spent with Patient: Total time spent is greater than 50% in coordination of care (as documented) at patient's floor/unit and/or counseling patient:35 Coding Level of Care Code 66254 Subseq Hosp Care Lvl 2 Diagnoses Cellulitis of scrotum N49.2 UTI (urinary tract infection) N39.0 Epididymo-orchitis N45.3 Shortness of breath R06.02 Atrial fibrillation I48.91 Atrial fibrillation type: unspecified HTN (hypertension) I10 Hypertension type: essential hypertension BPH (benign prostatic hyperplasia) N40.0 Lower urinary tract symptom presence: unspecified whether lower urinary tract symptoms present Depression F32.9 Depression Type: unspecified Hypokalemia E87.6 Elevated bilirubin R17 History of hemorrhagic cerebrovascular accident (CVA) with residual deficit I69.30 DVT prophylaxis Z29.9 Diarrhea R19.7 Time Spent (min) 35 (1) BPH (benign prostatic hyperplasia) Lower urinary tract symptom presence: unspecified whether lower urinary tract symptoms present Qualified Code(s): N40.0 - Benign prostatic hyperplasia without lower urinary tract symptoms (2) Atrial fibrillation Atrial fibrillation type: unspecified Qualified Code(s): I48.91 - Unspecified atrial fibrillation (3) Depression Depression Type: unspecified Qualified Code(s): F32.9 - Major depressive disorder, single episode, unspecified (4) HTN (hypertension) Hypertension type: essential hypertension Qualified Code(s): I10 - Essential (primary) hypertension
[2020-03-17] MEDS: TAMSULOSIN HCL 0.4 MG CAP PO SCH (20:22)
[2020-03-17] MEDS: diphenhydrAMINE Capsule 25 MG CAP PO SCH (20:22)
[2020-03-17] MEDS: MELATONIN 3 MG TAB PO SCH (20:23)
[2020-03-17] MEDS: DOCUSATE SODIUM/SENNA 50/8.6MG TAB PO SCH (20:24)
[2020-03-17] MEDS: RIVAROXABAN 10 MG TABLET PO SCH (20:24)
[2020-03-18] MEDS ORDERED: CALCIUM CARBONATE 500 MG CHEWABLE TAB PO PRN (00:47)
[2020-03-18 07:01] LABS: BUN Creatinine Ratio 19.2 (10-20); Calcium 8.9 mg/dl (8.5-10.1); Creatinine Clr Calc Pharmacy 145.9 ml/min; Est GFR (African American) 113.2; Est GFR (Non-African American) 97.6; Potassium 3.7 mmol/L (3.5-5.1)
[2020-03-18] MEDS: FINASTERIDE 5 MG TAB PO SCH (09:00)
[2020-03-18] MEDS: FAMOTIDINE 20 MG TAB PO SCH ×2 (09:00→21:15)
[2020-03-18] MEDS: LABETALOL HCL 100 MG TAB PO SCH ×2 (09:00→21:14)
[2020-03-18] MEDS: SULFAMETHOXAZOLE/TRIMETHOPRIM DS 800/160MG TAB PO SCH ×2 (09:00→21:13)
[2020-03-18] MEDS: LOSARTAN POTASSIUM 25 MG TAB PO SCH (09:01)
[2020-03-18] MEDS: FLUoxetine HCL 20 MG CAP PO SCH (09:01)
[2020-03-18] MEDS: NYSTATIN CR 15 GM TUBE EXT SCH ×2 (09:01→21:15)
[2020-03-18] MEDS: CLOTRIMAZOLE 1% CR 15 GM TUBE EXT SCH ×2 (09:01→21:16)
[2020-03-18] MEDS: ACETAMINOPHEN 325 MG TAB PO PRN (10:24)
--- NOTE | 2020-03-18 13:42 | Hospitalist Progress Note ---
Date of Service March 18, 2020 Assessment & Plan (1) Cellulitis of scrotum: Patient received 5 days of IV Zosyn. Urine culture with E. coli Changed to Bactrim DS every 12 hours 03/17/2020 for an additional 5 days of antibiotic treatment Leukocytosis has resolved No fever Patient with diarrhea negative for C. difficile Urology following (2) UTI (urinary tract infection): Culture with E. coli Changed to Bactrim DS every 12 hours 03/17/2020. Complete 5 more days of antibiotics Follow-up with urology in 10 days Afebrile Valdez catheter in place. Keep Valdez in place until follow-up exam with urology in 10 days. Follow strict I's and O's (3) Epididymo-orchitis: Ultrasound completed shows no torsion Valdez catheter in place Completed 5 days of Zosyn. Complete an additional 5 days of Bactrim DS every 12 hours Follow-up with urology in 10 days (4) Shortness of breath: Resolved. Oxygenating well on room air (5) Atrial fibrillation: Continue Xarelto Continue labetalol Rate controlled on exam (6) HTN (hypertension): Episodic hypertension in the 150s to 180s which appear to be related to pain Continue chlorthalidone 12.5 mg p.o. daily. Patient is also on labetalol 50 mg p.o. twice daily as well as losartan 25 mg p.o. every morning. Patient is also on an alpha-avel with finasteride 5 mg daily for his BPH Patient did receive some doses of hydralazine for breakthrough hypertension Continue to follow vital signs per protocol (7) BPH (benign prostatic hyperplasia): Valdez catheter in place Continue finasteride Urology following (8) Depression: Status post CVA with left hemiparesis several years ago and residing at [facility] Continue fluoxetine Continue melatonin for sleep (9) Hypokalemia: Resolved Follow serial labs (10) Elevated bilirubin: Resolved Patient denies current ethanol abuse history No abdominal pain (11) History of hemorrhagic cerebrovascular accident (CVA) with residual deficit: CVA 03/2019 Residual left hemiparesis No current headache or other new findings Continue supportive care Anticipate discharge back to [facility] tomorrow (12) DVT prophylaxis: Anticoagulated with Xarelto Has not been able to ambulate secondary to scrotal cellulitis Encourage out of bed to chair (13) Diarrhea: Negative for C. difficile Negative for Salmonella, Shigella, Campylobacter Admission and Anticipated Discharge Date Admission Date: March 13, 2020 Supervising Physician Co-Signing Physician Notes Patient seen and examined at bedside. During my face to face encounter with the patient, I examined and obtained a brief history of today;s symptoms. PATIENT reports feeling well. He has no new complaints. In reqcards to his cellulitis, he has received 5 days of IV Zosyn. Urine culture with E. coli Changed to Bactrim DS every 12 hours 03/17/2020 for an additional 5 days of antibiotic treatment Leukocytosis has resolved Patient is cleared for discharge. COVID 19 infefction However he became COVID 19+ AFTER TEST RESULTS CAME BACK. This will postpone his discharge until placement is ready. Subjective Patient seen and examined at bedside. He has no shortness of breath or cough. He denies any fever or chills. He does still have some abdominal discomfort which is chronic for the past several months. He is tolerating his meals. He does have some slight irritation from the Valdez catheter. He feels ready for discharge. In anticipation of discharge, rapid assay Posadas test was performed and was found to be positive for COVID-19. Patient previously was tested on 03/14/2019 and the results were negative. At this time, patient will be moved to a negative pressure isolation room with anticipated discharge tomorrow to [facility]. Review of Systems Review of Systems: All systems reviewed & are unremarkable except as noted in Subjective Physical Exam Physical Exam: GENERAL : No acute distress EYES: No icterus, gaze conjugate NOSE: No evidence of epistaxis MOUTH: No lesions or candidiasis NECK: Supple LUNGS: Lungs are grossly clear to auscultation. HEART: Regular, rate controlled ABDOMEN: Soft, NT, ND, BS Present. Patient does have some discomfort to deep palpation. Abdomen is protuberant EXTREMITIES: No LE edema, pedal pulses intact. Chronic venous stasis is noted NEURO: A&OX3 Results & Data Results & Data ([facility]) Vital Signs (Past 12 Hours) Vital Signs Temp Pulse Resp BP Pulse Ox 03/18/20 11:03 36.7 C 71 18 156/90 H 93 03/18/20 07:50 36.7 C 71 18 156/90 H 93 Laboratory Results 03/15/20 06:47 03/18/20 06:09 Laboratory Tests 03/14/20 18:00 COVID-19 PCR NEGATIVE Laboratory Tests 03/18/20 Unknown SARS-CoV-2, RNA, NAAT POSITIVE A* PG Care Time/CCT Total # of Minutes Spent Total Time Spent with Patient: Total time spent is greater than 50% in coordination of care (as documented) at patient's floor/unit and/or counseling patient:40 minutes Coding Level of Care Code 53227 Subseq Hosp Care Lvl 3 Diagnoses Cellulitis of scrotum N49.2 UTI (urinary tract infection) N39.0 Epididymo-orchitis N45.3 Shortness of breath R06.02 Atrial fibrillation I48.91 Atrial fibrillation type: unspecified HTN (hypertension) I10 Hypertension type: essential hypertension BPH (benign prostatic hyperplasia) N40.0 Lower urinary tract symptom presence: unspecified whether lower urinary tract symptoms present Depression F32.9 Depression Type: unspecified Hypokalemia E87.6 Elevated bilirubin R17 History of hemorrhagic cerebrovascular accident (CVA) with residual deficit I69.30 DVT prophylaxis Z29.9 Diarrhea R19.7 Time Spent (min) 40 (1) BPH (benign prostatic hyperplasia) Lower urinary tract symptom presence: unspecified whether lower urinary tract symptoms present Qualified Code(s): N40.0 - Benign prostatic hyperplasia without lower urinary tract symptoms (2) Atrial fibrillation Atrial fibrillation type: unspecified Qualified Code(s): I48.91 - Unspecified atrial fibrillation (3) Depression Depression Type: unspecified Qualified Code(s): F32.9 - Major depressive disorder, single episode, unspecified (4) HTN (hypertension) Hypertension type: essential hypertension Qualified Code(s): I10 - Essential (primary) hypertension
[2020-03-18] MEDS: RIVAROXABAN 10 MG TABLET PO SCH (21:13)
[2020-03-18] MEDS: TAMSULOSIN HCL 0.4 MG CAP PO SCH (21:14)
[2020-03-18] MEDS: diphenhydrAMINE Capsule 25 MG CAP PO SCH (21:14)
[2020-03-18] MEDS: DOCUSATE SODIUM/SENNA 50/8.6MG TAB PO SCH (21:15)
[2020-03-18] MEDS: MELATONIN 3 MG TAB PO SCH (22:18)
[2020-03-19] MEDS: ACETAMINOPHEN 325 MG TAB PO PRN ×2 (00:10→08:02)
[2020-03-19 05:46] LABS: BUN Creatinine Ratio 21.6 (10-20); Calcium 9.1 mg/dl (8.5-10.1); Creatinine Clr Calc Pharmacy 158.5 ml/min; Est GFR (African American) 117.1; Potassium 3.9 mmol/L (3.5-5.1)
[2020-03-19] MEDS: LABETALOL HCL 100 MG TAB PO SCH (08:03)
[2020-03-19] MEDS: SULFAMETHOXAZOLE/TRIMETHOPRIM DS 800/160MG TAB PO SCH (08:03)
[2020-03-19] MEDS: LOSARTAN POTASSIUM 25 MG TAB PO SCH (08:03)
[2020-03-19] MEDS: FAMOTIDINE 20 MG TAB PO SCH (08:03)
[2020-03-19] MEDS: FINASTERIDE 5 MG TAB PO SCH (08:03)
[2020-03-19] MEDS: FLUoxetine HCL 20 MG CAP PO SCH (08:03)
[2020-03-19] MEDS: CAPSAICIN CR 0.075% 60 GM TUBE EXT PRN (08:06)
[2020-03-19] MEDS: CLOTRIMAZOLE 1% CR 15 GM TUBE EXT SCH (08:06)
[2020-03-19] MEDS: NYSTATIN CR 15 GM TUBE EXT SCH (08:06)
[2020-03-19] MEDS: CHLORTHALIDONE 25 MG TAB PO SCH (09:28)
--- NOTE | 2020-03-26 00:24 | Discharge Summary ---
Date of Service March 19, 2020 Admission HPI Per Admitting Provider Mr. Diego Lozada is a 64yo C male with history of atrial fibrillation, obesity, prior CVA with left sided deficit. Patient resides at [facility]. He reports 3-4 days of testicular pain and swelling. He has had some subjective fevers and chills as well as nausea. Notes he has had some worsening shortness of breath over the last few weeks as well as some orthopnea. He has never had difficulties with testicular pain or swelling before. He denies penile discharge. Is not sexually active. Denies CP/palpitations/abdominal pain/vomiting/constipation Has loose stools at baseline. No Covid-19 concerns - per [facility] records he had testing on Sunday which was negative No additional complaints at this time. ER Course: Mesfin Principal Diagnosis cellulitis of scrotum Discharge Exam GENERAL : No acute distress EYES: No icterus, gaze conjugate NOSE: No evidence of epistaxis MOUTH: No lesions or candidiasis NECK: Supple LUNGS: Lungs are grossly clear to auscultation. HEART: Regular, rate controlled ABDOMEN: Soft, NT, ND, BS Present. Patient does have some discomfort to deep palpation. Abdomen is protuberant EXTREMITIES: No LE edema, pedal pulses intact. Chronic venous stasis is noted NEURO: A&OX3 Discharge Data Allergies Allergy/AdvReac Type Severity Reaction Status Date / Time coffee (Coffea arabica) Allergy Unknown ON [facility] Verified 03/13/20 20:21 [facility] LIST strawberry Allergy Unknown ON CENTRE Verified 03/13/20 20:21 [facility] LIST ENVIRONMENT Allergy Intermediate CONGESTION Uncoded 03/13/20 20:22 Consultations 03/13/20 21:51 ED Decision to Admit Stat 03/13/20 23:12 Consult Case Management - Discharge Planning Routine Consult Urology Routine 03/19/20 10:50 Burn CD for patient Stat Ordered Studies 03/13/20 17:53 CT abd pelvis IV con only Stat 03/14/20 11:56 US scrotum/testicle Urgent Hospital Course (1) Cellulitis of scrotum: * Patient with scrotal cellullitis, orchitis as well as bilateral hydroceles on CT on admission. He is afebrile, HD stable at present (reported fevers/chills [facility]). Has a neutrophil predominant leukocytosis and +urinalysis. CT of the abdomen with NO evidence of gas or necrotizing infection. Reported hx listed for DM although patient denies. Lactic 1.3 * Scrotal lift if able -- not currently * Elevation with towel * IVF support -- added 20meq KCl to IVF for hypoK. * Tylenol as need for pain * Patient required st cath x 2 -- given degree of swelling, if patient unable to void in future would place Winkler catheter. nursing made aware to notify of bladder scan results and Winkler if needed * US Scrotum ordered to r/o torsion -- without evidence of torsion -- b/l epididymoorchitis, moderate bilateral hydroceles, marked skin thickening/edema within scrotum with associated increased color flow, favoring a cellulitis * Patient received 5 days of IV Zosyn. Urine culture with E. coli Changed to Bactrim DS every 12 hours 03/17/2020 for an additional 5 days of antibiotic treatment Leukocytosis has resolved No fever Patient with diarrhea negative for C. difficile Urology following, ok to discharge on antibiotics (2) UTI (urinary tract infection): Culture with E. coli Changed to Bactrim DS every 12 hours 03/17/2020. Complete 5 more days of antibiotics Follow-up with urology in 10 days Afebrile Winkler catheter in place. Keep Winkler in place until follow-up exam with urology in 10 days. Follow strict I's and O's (3) Epididymo-orchitis: * Ultrasound completed shows no torsion Winkler catheter in place Completed 5 days of Zosyn. Complete an additional 5 days of Bactrim DS every 12 hours Follow-up with urology in 10 days (4) Shortness of breath: * Patient reports worsening shortness of breath over the last few days as well as orthopnea. He does not appear to be volume overloaded on exam, however exam is limited due to body habitus. * TSH wnl * BNP 299 and without evidence of failure. Trop <0.015. EKG * ECHO -- mildly dilated LV with possibly low-normal systolic function. Estimated EF 50-55%. Poor image quality. No obvious wma, however cannot exclude. Severe concentric LVH. No significant valvular abn visualize, however valves were not well seen. Technically difficult study with poor image quality. Will need follow up at discharge. * Did get dose of IV lasix this morning 20mg for pulm edema on CXR * 94% on RA * Denied shortness of breath currently * Monitor for s/sx volume overload as he is on IVF (5) Atrial fibrillation: * Rate controlled. Not in on examination. * Continue labetalol 50mg po BID * Continue Rivaroxaban 10mg po qPM although this is only being used for DVT prophylaxis at the alf. He previously was on Coumadin when he lived in [place] years ago but this was stopped when he had a hemorrhagic CVA * Consider increasing Xarelto dose to 20 mg daily for stroke prophylaxis as it appears his hemorrhagic CVA was thought to be brought on by head trauma? (6) HTN (hypertension): * Elevated to 174/87 likely secondary to pain * Holding chlorthalidone 12.5mg daily (did get this morning) as on IVF for above * Continue Labetalol 50mg po BID, Continue Losartan 25mg po qAM * Hydralazine prn SBD >180 or DBP >100 * Continue to monitor (7) BPH (benign prostatic hyperplasia): * Chronic * Continue Finasteride 5mg po qAM * Continue Flomax 0.4mg po qHS * See above -- if rec cath again will place winkler * Of note, did come back from US with large amount of incontinent urine * Continue to monitor UO (8) Depression: * Patient with flat affect, seems slightly angry at times. * Continue Fluoxetine 20mg po qAM (9) Hypokalemia: * resolved (10) Elevated bilirubin: resolved (11) History of hemorrhagic cerebrovascular accident (CVA) with residual deficit: * With a history of right-sided hemorrhagic CVA in 03/2019 * With residual left-sided hemiparesis * Has a history of atrial fibrillation, however was not on Coumadin at the time of the stroke-was noted to have had a fall and this was thought to be a traumatic ICH as per ER notes from this facility * Supportive care (12) DVT prophylaxis: * Xarelto 10 mg daily which she is on chronically at the alf (13) Diarrhea: Total Time Total Time Spent Total Time Spent (In Minutes): 32 Total Time Includes: Examination of the Patient, Discharge Planning and Medication Reconciliation Discharge Plan Discharge Items Patient Disposition: Transfer Jail Fac Reason For Visit: SCROTAL EDEMA, ORCHITIS Discharge Diagnosis: Epididymoorchitis Scrotal cellulitis Urinary tract infection Activity: Resume your previous activity Lifting: Gradually increase as tolerated Bathing: No limitations Exercise/Sports: Gradually increase as tolerated Weightbearing: Full weightbearing Non-emergency contact: Primary Care Provider Call non-emergency contact if: you have any medication questions and you have a fever Follow-up/Referrals: Hemal Sheriff [Primary Care Provider] - Diet: Heart Healthy and Low Fat Addtl Attending Provider Instructions: You were admitted with cellulitis of the scrotum as well as infection of the testicles and urinary tract system. He received IV Zosyn throughout your hospital stay until yesterday when you are converted to Bactrim DS. This is a sulfa drug and can sometimes cause allergic reaction. If you should develop a rash on your abdomen or upper thighs or itching please let your nurse know. If you should develop a reaction, there are other options for oral antibiotics you can take at home. He should follow-up with urology within 10 days. At that time they will evaluate you for removal of your Winkler catheter. You should take all medications as prescribed and move about as much as possible. TAKE BACTRIM FOR 14 MORE DAYS. Pending Studies at Discharge: No Stand-Alone Forms: [facility] Skilled Items Patient informed of condition?: Yes DNR: Yes Discharge Level of Care: Skilled Communicable Disease: No Discharge Prognosis: Improving Lines: None Urinary Catheter: Yes Medications and DC Order Prescriptions: New sulfamethoxazole-trimethoprim [Bactrim DS] 800-160 mg tablet 1 tab PO BID 14 Days Qty: 28 RF: 0 Continued Bengay Greaseless 15-10 % cream 1 appln TOP TID PRN (Reason: PAIN RELIEF) RF: 0 Cepacol Sore Throat (naye-men) 15-2.3 mg lozenge 1 tari PO DIRECTED PRN (Reason: sore throat) RF: 0 chlorthalidone 25 mg tablet 12.5 mg PO QAM RF: 0 diphenhydramine HCl [Allergy (diphenhydramine)] 25 mg capsule 25 mg PO QPM RF: 0 famotidine 20 mg tablet 20 mg PO BID RF: 0 finasteride 5 mg tablet 5 mg PO QAM RF: 0 fluoxetine 20 mg capsule 20 mg PO QAM RF: 0 loperamide [Imodium A-D] 2 mg capsule 2 mg PO Q6H PRN (Reason: Diarrhea) RF: 0 labetalol 100 mg tablet 50 mg PO BID RF: 0 losartan 25 mg tablet 25 mg PO QAM RF: 0 tamsulosin 0.4 mg capsule 0.4 mg PO HS RF: 0 acetaminophen [Tylenol] 325 mg capsule 650 mg PO Q6H MDD 3 GRAMS/24 HOURS PRN (Reason: FEVER/PAIN) RF: 0 Xarelto 10 mg tablet 10 mg PO QPM RF: 0 ondansetron HCl [Zofran] 4 mg Tablet 4 mg PO Q6H PRN (Reason: NAUSEA/VOMITING) RF: 0 sennosides-docusate sodium [Senokot-S] 8.6-50 mg Tablet 1 tab-cap PO QPM RF: 0 melatonin 3 mg Tablet 3 mg PO HS RF: 0 nystatin 100,000 unit/gram Cream 1 applic TOPICAL BID RF: 0 Discharge Orders: Discharge Order (Routine); Ordered 03/19/20 Ordered By: Fly [place] Admission Data Admit Date/Time: 03/13/20 22:33 Attending Provider: Fly [place] Admit Provider: Radha Bowens Primary Care Provider: Hemal Sheriff Other Providers: Hemal Sheriff ; Tu Gaitan ; Radha Bowens ; Ayden Porter Other Interventions: Discharge Summary Assessment (RN) Last Done: 03/19/20 12:19 Coding Level of Care Code D/C Day Management >30 mins Diagnoses Cellulitis of scrotum N49.2 UTI (urinary tract infection) N39.0 Epididymo-orchitis N45.3 Shortness of breath R06.02 Atrial fibrillation I48.91 Atrial fibrillation type: unspecified HTN (hypertension) I10 Hypertension type: essential hypertension BPH (benign prostatic hyperplasia) N40.0 Lower urinary tract symptom presence: unspecified whether lower urinary tract symptoms present Depression F32.9 Depression Type: unspecified Hypokalemia E87.6 Elevated bilirubin R17 History of hemorrhagic cerebrovascular accident (CVA) with residual deficit I69.30 DVT prophylaxis Z29.9 Diarrhea R19.7 Time Spent (min) 32
== END 2020-03-19 13:27 | DRG 728 ==
LOC: ED 17:38 → 3E 22:33 → SUATTDRO 22:33 → 3E 22:57 → 2E 03-18 13:25

== ENCOUNTER 2022-01-18 13:51 | Inpatient (IN) ==
[2022-01-18] MEDS ORDERED: cefTRIAXone SODIUM 2,000 MG/70 ML BAG IV STA (14:15)
--- NOTE | 2022-01-18 14:22 | Emergency Department Note ---
Impression & Plan Sepsis, Leukocytosis, Acute UTI ED Provider Note NAME: CHELO SIMONS AGE: 66 SEX: M : 1955 ARRIVES VIA: Ambulance INFORMANT: Patient, EMS, Nursing ED PROVIDER(S): Song Valdez DO CHIEF COMPLAINT: Altered mental status HPI: Patient is a 66-year-old male with past medical history of hypertension, angina, BPH, morbid obesity that presents the ER from [place] [facility] for altered mental status. At baseline he is normally awake alert oriented x4 but has been confused since earlier today. He does have a history of stroke. He refused all meds this morning. He has been voiding normally per the report. He is usually incontinent on purpose per RN. They gave him 1 g of Tylenol at 1 PM. Temperature was as high as 102. He has also been hallucinating. He had a negative COVID test. Patient is agitated but denies all complaints. History is limited secondary to mentation. ROS: See above HPI for pertinent positives & negatives. A total of 10 systems reviewed and were otherwise negative. PAST MEDICAL HISTORY:See Below PAST SURGICAL HISTORY:See Below FAMILY HISTORY:See Below SOCIAL HISTORY:See Below HOME MEDICATIONS:See Below ALLERGIES:See Below VITALS:See Below PHYSICAL EXAMINATION: GENERAL: Sitting up in bed, alert, ill-appearing, falls asleep quickly, disheveled, smell of urine EYE EXAM: normal conjunctiva. PERRL and EOM's grossly intact. OROPHARYNX: Mucous membrane moist NECK: supple, no nuchal rigidity, no adenopathy, non-tender LUNGS: Clear to auscultation. Normal chest wall mechanics HEART: no murmurs, S1 normal and S2 normal ABDOMEN: abdomen soft, non-tender, normo-active bowel sounds, no masses, no rebound or guarding. UPPER EXTREMITIES: upper extremities are grossly normal. LOWER EXTREMITIES: No pitting edema. NEURO EXAM: Sitting up in bed, awakens to voice but confused intermittently moving bilateral upper and lower extremities and agitated MEDICAL DECISION MAKING: Patient is a 66-year-old gentleman that presents the ER from [place] [facility] for altered mental status which started earlier today so around 11:00. He was found to be febrile and tachycardic. IVs were established blood work was obtained. Showed mild leukocytosis of nearly 14,000. No significant anemia. INR unremarkable. VBG with a pH of 7.48 and CO2 of 37. BMP was fairly unremarkable. Glucose mildly elevated at 130. T bili at 1.9. LFTs were unremarkable. Lactate was normal. COVID was negative. Patient was given IV fluids as well as IV Rocephin. Awaiting on urine as I favor this likely source especially with inflammation around the bladder on CT. CT abdomen pelvis was limited secondary to body habitus but nothing acute. CT head was negative. Chest x-ray unremarkable with exception of a large heart/cardiomegaly and consequently was given judicious fluids/1 L. He was updated at bedside. Discussed with Dr. hull for further evaluation and will be admitted for further work-up. Pt is a DNR. Triage Nursing notes reviewed. Limited review of prior medical records performed Vital Signs: reviewed and remarkable for tachycardia, febrile and tachypneic Differential diagnosis: Differential diagnoses includes but is not limited to toxic, metabolic, inf ectious, traumatic, cardiac, neurologic, hematologic, psychiatric and inflammatory etiologies. ER treatment provided: See below Diagnostics interpreted by me: ECG: Sinus rhythm rate of 118 Left axis No PVCs Right bundle branch block QTC 490 Cardiac Monitoring: An order was placed for continuous cardiac monitoring. The monitor shows a rate of 118 with sinus rhythm. Laboratory studies: As stated above and show below. Imaging studies: CT head and abdomen pelvis as described above Chest x-ray was unremarkable Consultation(s): Discussed with Dr. Sheldon Hull self for further evaluation Procedures: none Critical Care: None Past Med/Surg History Medical History Cellulitis of scrotum Diabetes Hypertension Left hemiparesis Morbid obesity Family History Other Cancer No pertinent family history in first degree relatives Stroke Social History Smoking Status: Unknown if ever smoked Second Hand Exposure: No; Hx Alcohol Use: No Hx Substance Use: No Preferred Language: Citizen Of [place] Communication Ability: Effective [employer]rick[employer] Rigger Required: No Beliefs That Will Affect Care: None marital status: / Current Living Situation: Group Home Current Living Situation Comment: [facility] Feels Safe at Home: Yes Assistive Devices: None Allergies Allergies Allergy/AdvReac Type Severity Reaction Status Date / Time coffee (Coffea arabica) Allergy Unknown ON CENTRE Verified 07/22/20 20:02 CREST LIST strawberry Allergy Unknown ON CENTRE Verified 07/22/20 20:02 CREST LIST Home Meds Home Medications Medication Instructions Recorded Confirmed acetaminophen 325 mg capsule 650 mg PO Q6H PRN FEVER/PAIN 12/23/19 07/22/20 (Tylenol) diphenhydramine HCl 25 mg capsule 25 mg PO QPM 12/23/19 07/22/20 (Allergy (diphenhydramine)) famotidine 20 mg tablet 20 mg PO BID 12/23/19 07/22/20 finasteride 5 mg tablet 5 mg PO QAM 12/23/19 07/22/20 labetalol 100 mg tablet 50 mg PO BID 12/23/19 07/22/20 loperamide 2 mg capsule (Imodium 2 mg PO UD PRN Diarrhea 12/23/19 07/22/20 A-D) methyl salicylate 15 %-menthol 10 1 appln topical TID PRN PAIN RELIEF 12/23/19 07/22/20 % topical cream (Bengay Greaseless) rivaroxaban 10 mg tablet (Xarelto) 10 mg PO QPM 12/23/19 07/22/20 tamsulosin 0.4 mg capsule 0.4 mg PO HS 12/23/19 07/22/20 melatonin 3 mg tablet 3 mg PO HS 03/13/20 07/22/20 ondansetron HCl 4 mg tablet 4 mg PO Q6H PRN NAUSEA/VOMITING 03/13/20 07/22/20 (Zofran) carbamide peroxide 6.5 % ear drops 2 drp OTB QID 07/22/20 07/22/20 (Debrox) diphenoxylate-atropine 2.5 2 tab PO Q6 PRN Diarrhea 07/22/20 07/22/20 mg-0.025 mg tablet (Lomotil) fluoxetine 10 mg capsule 5 mg PO DAILY 07/22/20 07/22/20 potassium chloride 20 mEq/15 mL 20 meq PO BID 07/22/20 07/22/20 oral liquid promethazine 25 mg tablet 25 mg PO Q6H PRN N/V 07/22/20 07/22/20 promethazine 25 mg/mL injection 25 mg IM Q6H PRN nausea/vomiting 07/22/20 07/22/20 solution tramadol 50 mg tablet 50 mg PO Q6H PRN Pain 07/22/20 07/22/20 Previous Rx's Medication Instructions Recorded colestipol 1 gram tablet (Colestid) 2 g PO BID@1000,2200 30 days #120 07/24/20 tabs sodium bicarbonate 650 mg tablet 650 mg PO BID #60 tabs 07/24/20 Results & Data (ED) Vital Signs Vital Signs - 24 hr 01/18/22 14:05 01/18/22 14:33 01/18/22 14:43 Temperature 37.6 C H Temperature Source Axillary Pulse Rate 122 H Pulse Rate [Apical] 120 H Respiratory Rate 30 H 28 H Respiratory Effort / Characteristics Short of Breath Respiratory Pattern Tachypnea Blood Pressure 116/93 Blood Pressure [Right Arm] 134/81 Blood Pressure Mean 100 Blood Pressure Mean [Right Arm] 98 Blood Pressure Position [Right Arm] Pulse Oximetry 95 96 91 Oxygen Delivery Method Room Air Nasal Cannula Room Air Oxygen Flow Rate 2 Sepsis Recent Fever Within 48 Hours Yes Sepsis New/Unexplained Change in Mental Status Yes Sepsis Action Taken by Nursing Physician Notified 01/18/22 14:15 01/18/22 15:05 01/18/22 15:05 Temperature Temperature Source Pulse Rate Pulse Rate [Apical] 117 H Respiratory Rate 24 Respiratory Effort / Characteristics Labored Short of Breath Respiratory Pattern Blood Pressure Blood Pressure [Right Arm] 144/89 H Blood Pressure Mean Blood Pressure Mean [Right Arm] 107 Blood Pressure Position [Right Arm] Pulse Oximetry 93 89 L 89 L Oxygen Delivery Method Room Air Room Air Room Air Oxygen Flow Rate Sepsis Recent Fever Within 48 Hours Sepsis New/Unexplained Change in Mental Status Sepsis Action Taken by Nursing 01/18/22 15:42 01/18/22 15:43 01/18/22 16:09 Temperature Temperature Source Pulse Rate Pulse Rate [Apical] 112 H 115 H Respiratory Rate 26 H Respiratory Effort / Characteristics Spontaneous Short of Breath Respiratory Pattern Blood Pressure Blood Pressure [Right Arm] 137/98 156/78 H Blood Pressure Mean Blood Pressure Mean [Right Arm] 111 104 Blood Pressure Position [Right Arm] Pulse Oximetry 93 94 Oxygen Delivery Method Room Air Room Air Oxygen Flow Rate Sepsis Recent Fever Within 48 Hours Sepsis New/Unexplained Change in Mental Status Sepsis Action Taken by Nursing 01/18/22 16:10 01/18/22 16:37 01/18/22 16:37 Temperature Temperature Source Pulse Rate Pulse Rate [Apical] 117 H Respiratory Rate 24 Respiratory Effort / Characteristics Labored Short of Breath Short of Breath Respiratory Pattern Blood Pressure Blood Pressure [Right Arm] 131/95 Blood Pressure Mean Blood Pressure Mean [Right Arm] 107 Blood Pressure Position [Right Arm] Lying Pulse Oximetry 92 Oxygen Delivery Method Room Air Oxygen Flow Rate Sepsis Recent Fever Within 48 Hours Sepsis New/Unexplained Change in Mental Status Sepsis Action Taken by Nursing Laboratory Data Result diagrams: 01/18/22 14:30 01/18/22 15:53 Lab Results 01/18/22 01/18/22 01/18/22 Range/Units 14:30 14:30 14:30 WBC 13.95 H (4.8-10.8) K/ul RBC 5.59 (4.63-6.08) M/uL Hgb 16.7 (14.0-18.0) g/dl POC Hgb (14.0-18.0) g/dl Hct 50.7 (40.1-51.0) % POC Hct (42-52) % MCV 90.7 (80.0-100.0) fL MCH 29.9 (25.0-34.0) pg MCHC 32.9 (32.0-36.0) g/dL RDW Std Deviation 43.2 (36.4-46.3) fL RDW Coeff of [place]id[place] 13.1 (11.5-14.5) % Plt Count 182 (130-400) K/uL MPV 11.0 (9.4-12.4) fL Immature Gran % (Auto) 0.9 % Neut % (Auto) 80.9 % Lymph % (Auto) 4.2 % [place] % (Auto) 13.9 % Eos % (Auto) 0.0 % Baso % (Auto) 0.1 % Neut # (Auto) 11.28 H (1.4-6.5) K/uL Lymph # (Auto) 0.59 L (1.2-3.4) K/uL [place] # (Auto) 1.94 H (0.24-0.82) K/uL Eos # (Auto) 0.00 (0-0.50) K/uL Baso # (Auto) 0.02 (0-0.2) K/uL Immature Gran # (Auto) 0.12 H (0.00-0.02) K/uL PT Cancelled INR Cancelled APTT Cancelled PTT Ratio Cancelled VBG pH (7.36-7.41) VBG pCO2 (38-50) mmHg VBG pO2 mmHg VBG HCO3 mmol/L VBG O2 Saturation % VBG Base Excess mEq/L POC Sodium (135-144) mmol/L Sodium TNP POC Potassium (3.3-5.0) mmol/L Potassium TNP POC Chloride (101-112) mmol/L Chloride 99 (98-107) mmol/L Carbon Dioxide 24 (21-32) mmol/L POC Total CO2 (24-31) mmol/L Anion Gap TNP POC Anion Gap (16-25) mmol/L POC BUN (7-18) mg/dl BUN 21 (6-23) mg/dl Creatinine 1.08 (0.6-1.4) mg/dl POC Creatinine (0.6-1.3) mg/dl Est Cr Clr Drug Dosing 101.9 ml/min Est GFR ( Amer) 83.0 ml/min Est GFR (Non-Af Amer) 71.6 ml/min BUN/Creatinine Ratio 19.4 (10-20) Glucose 122 H (70-99(Fasting)) mg/dl POC Glucose (other) (70-99) mg/dl Lactate (0.4-2.0) mmol/L Calcium 9.4 (8.5-10.1) mg/dl POC Ioniz Calcium Marty (1.12-1.32) mmol/l Magnesium TNP Total Bilirubin 1.9 H (0.2-1.0) mg/dl AST TNP ALT 19 (7-52) U/L Alkaline Phosphatase TNP Total Protein 8.1 (6.0-8.3) gm/dl Albumin TNP Globulin TNP Albumin/Globulin Ratio TNP SARS-CoV-2, RNA, NAAT (NEGATIVE) 01/18/22 01/18/22 01/18/22 Range/Units 14:30 14:35 14:36 WBC (4.8-10.8) K/ul RBC (4.63-6.08) M/uL Hgb (14.0-18.0) g/dl POC Hgb (14.0-18.0) g/dl Hct (40.1-51.0) % POC Hct (42-52) % MCV (80.0-100.0) fL MCH (25.0-34.0) pg MCHC (32.0-36.0) g/dL RDW Std Deviation (36.4-46.3) fL RDW Coeff of Viridiana (11.5-14.5) % Plt Count (130-400) K/uL MPV (9.4-12.4) fL Immature Gran % (Auto) % Neut % (Auto) % Lymph % (Auto) % [place] % (Auto) % Eos % (Auto) % Baso % (Auto) % Neut # (Auto) (1.4-6.5) K/uL Lymph # (Auto) (1.2-3.4) K/uL [place] # (Auto) (0.24-0.82) K/uL Eos # (Auto) (0-0.50) K/uL Baso # (Auto) (0-0.2) K/uL Immature Gran # (Auto) (0.00-0.02) K/uL PT INR APTT PTT Ratio VBG pH 7.48 H (7.36-7.41) VBG pCO2 37 L (38-50) mmHg VBG pO2 49 mmHg VBG HCO3 28 mmol/L VBG O2 Saturation 81.7 % VBG Base Excess 4.0 mEq/L POC Sodium (135-144) mmol/L Sodium POC Potassium (3.3-5.0) mmol/L Potassium POC Chloride (101-112) mmol/L Chloride (98-107) mmol/L Carbon Dioxide (21-32) mmol/L POC Total CO2 (24-31) mmol/L Anion Gap POC Anion Gap (16-25) mmol/L POC BUN (7-18) mg/dl BUN (6-23) mg/dl Creatinine (0.6-1.4) mg/dl POC Creatinine (0.6-1.3) mg/dl Est Cr Clr Drug Dosing ml/min Est GFR ( Amer) ml/min Est GFR (Non-Af Amer) ml/min BUN/Creatinine Ratio (10-20) Glucose (70-99(Fasting)) mg/dl POC Glucose (other) (70-99) mg/dl Lactate 1.2 (0.4-2.0) mmol/L Calcium (8.5-10.1) mg/dl POC Ioniz Calcium Marty (1.12-1.32) mmol/l Magnesium Total Bilirubin (0.2-1.0) mg/dl AST ALT (7-52) U/L Alkaline Phosphatase Total Protein (6.0-8.3) gm/dl Albumin Globulin Albumin/Globulin Ratio SARS-CoV-2, RNA, NAAT NEGATIVE (NEGATIVE) 01/18/22 01/18/22 01/18/22 Range/Units 14:36 15:53 15:53 WBC (4.8-10.8) K/ul RBC (4.63-6.08) M/uL Hgb (14.0-18.0) g/dl POC Hgb 17.0 (14.0-18.0) g/dl Hct (40.1-51.0) % POC Hct 50 (42-52) % MCV (80.0-100.0) fL MCH (25.0-34.0) pg MCHC (32.0-36.0) g/dL RDW Std Deviation (36.4-46.3) fL RDW Coeff of [place]id[place] (11.5-14.5) % Plt Count (130-400) K/uL MPV (9.4-12.4) fL Immature Gran % (Auto) % Neut % (Auto) % Lymph % (Auto) % [place] % (Auto) % Eos % (Auto) % Baso % (Auto) % Neut # (Auto) (1.4-6.5) K/uL Lymph # (Auto) (1.2-3.4) K/uL [place] # (Auto) (0.24-0.82) K/uL Eos # (Auto) (0-0.50) K/uL Baso # (Auto) (0-0.2) K/uL Immature Gran # (Auto) (0.00-0.02) K/uL PT 13.1 H INR 1.2 H APTT 29.8 PTT Ratio 1.1 VBG pH (7.36-7.41) VBG pCO2 (38-50) mmHg VBG pO2 mmHg VBG HCO3 mmol/L VBG O2 Saturation % VBG Base Excess mEq/L POC Sodium 139 (135-144) mmol/L Sodium 135 L POC Potassium 4.4 (3.3-5.0) mmol/L Potassium 4.6 POC Chloride 100 L (101-112) mmol/L Chloride (98-107) mmol/L Carbon Dioxide (21-32) mmol/L POC Total CO2 24 (24-31) mmol/L Anion Gap POC Anion Gap 20.0 (16-25) mmol/L POC BUN 22 H (7-18) mg/dl BUN (6-23) mg/dl Creatinine (0.6-1.4) mg/dl POC Creatinine 1.1 (0.6-1.3) mg/dl Est Cr Clr Drug Dosing ml/min Est GFR ( Amer) ml/min Est GFR (Non-Af Amer) ml/min BUN/Creatinine Ratio (10-20) Glucose (70-99(Fasting)) mg/dl POC Glucose (other) 131 H (70-99) mg/dl Lactate (0.4-2.0) mmol/L Calcium (8.5-10.1) mg/dl POC Ioniz Calcium Marty 1.18 (1.12-1.32) mmol/l Magnesium 1.9 Total Bilirubin (0.2-1.0) mg/dl AST 17 ALT (7-52) U/L Alkaline Phosphatase 54 Total Protein (6.0-8.3) gm/dl Albumin 3.7 Globulin Albumin/Globulin Ratio SARS-CoV-2, RNA, NAAT (NEGATIVE) Administered Medications Sodium Chloride (Nss 1000ml) 1,000 mls @ 999 mls/hr IV .Q1H1M ONE Stop: 01/18/22 17:44 Last Admin: 01/18/22 16:52 Dose: 999 mls/hr Documented By: KIM Discontinued Medications Ceftriaxone Sodium (Rocephin) 2,000 mg in 70 mls @ 140 mls/hr IV NOW STA Stop: 01/18/22 14:44 Last Infusion: 01/18/22 15:19 Dose: 0 mls/hr Documented By: Admin: 01/18/22 14:49 Dose: 140 mls/hr Documented By: KIM Ioversol (Optiray 300 500ml) 110 ml IV ONCE ONE Stop: 01/18/22 15:36 Last Admin: 01/18/22 15:36 Dose: 110 ml Documented By: [facility] Ketorolac Tromethamine (Ketorolac Tromethamine 15 Mg/Ml Vial) 15 mg IV NOW ONE Stop: 01/18/22 16:45 Last Admin: 01/18/22 16:51 Dose: 15 mg Documented By: [facility] Imaging Data Radiologist's Impression: Abdomen/Pelvis CT 01/18/22 14:[address] WITH IV CONTRAST CT DOSE: HISTORY: Confusion. Generalized abdominal pain. Altered mental status. TECHNIQUE: Multiaxial CT images of the abdomen and pelvis were performed following the use of intravenous contrast. A dose lowering technique was utilized adhering to the principles of ALARA. COMPARISON STUDY: Abdomen and pelvis CT 07/22/2020. FINDINGS: Motion artifact resulting in suboptimal evaluation. The lung bases are grossly clear. No pneumoperitoneum. No pneumatosis. No suspicious lytic or blastic osseous lesions. The left anterolateral abdominal wall is obscured due to the abdominal wall abutting the gantry. Cholelithiasis. No definite gallbladder wall thickening. Stable 1 cm hypodense lesion within the left hepatic lobe. This favors a cyst. The spleen, adrenal glands, and pancreas appear unremarkable. Mild bilateral perinephric edema which is likely chronic. This remains unchanged. There is a 1 cm hypodense lesion within the upper pole of the left kidney. This is not well assessed due to the motion artifact but is similar to the prior studies and therefore favors a cyst. No renal or ureteral stones. No hydronephrosis. The main portal vein is patent. Normal caliber abdominal aorta. No retroperitoneal lymphadenopathy. Mild bladder wall thickening with adjacent fat stranding. The prostate gland is normal in size. Moderate well-formed stool seen within the colon. No definite bowel wall thickening or obstruction. Normal appendix. IMPRESSION: 1. Suboptimal evaluation of the abdomen and pelvis due to the motion artifact and the left lateral abdominal wall abutting the gantry. 2. No definite bowel wall thickening or obstruction. 3. Normal appendix. 4. No hydronephrosis. 5. Mild bladder wall thickening. This may represent a cystitis. Recommend c orrelation with urinalysis. 6. Cholelithiasis. ACT 112: Negative or not required by law. Electronically signed by: Grupo Lehman M.D. 01/18/2022 4:07 PM Chest X-Ray 01/18/22 14:15 SINGLE VIEW CHEST CLINICAL HISTORY: Sepsis FINDINGS: An AP, portable, upright chest radiograph is compared to study dated 03/14/2020. The examination is degraded by portable technique and patient rotation. The heart is enlarged noting atherosclerotic calcification of the thoracic aorta. There is pulmonary vascular congestion. There is chronic elevation of the right hemidiaphragm with mild bibasilar atelectasis. No large pleural effusion or pneumothorax is seen. The skeletal structures are osteopenic. The bony thorax is grossly intact. IMPRESSION: Cardiomegaly without evidence of congestive failure. ACT 112: Negative or not required by law. Electronically signed by: Maycol Del Rosario M.D. 01/18/2022 3:[address] 01/18/22 14:[address] DOSE: 3535.00 mGy.cm HISTORY: Altered mental status. Confusion. TECHNIQUE: Multiaxial CT images of the head were performed without the use of intravenous contrast. Automated exposure control was utilized for this study. A dose lowering technique was utilized adhering to the principles of ALARA. Comparison: Head CT 04/05/2019. Findings: Partially visualized retention cysts again noted within the right maxillary sinus. The mastoid air cells are clear. No change in the 4.7 x 1.0 cm expansile lucent lesion within the left parietal bone. Mild motion artifact. The calvarium and skull base are intact. There is no mass, hematoma, midline shift, acute infarct. White matter hypodensity is nonspecific but suggestive of microvascular ischemic change. The ventricles and sulci demonstrate mild age-related involutional changes. Old lacunar infarcts seen within the right basal ganglia/thalamus. There is also an old lacunar infarct within the right cerebellar hemisphere. There are also old lacunar infarcts seen within the left basal ganglia. Impression: 1. No acute infarct or intracranial hemorrhage. 2. Atrophy, microvascular ischemic changes, and old lacunar infarcts as described above. 3. No change in the left parietal bone expansile lesion. ACT 112: Negative or not required by law. Electronically signed by: Grupo Lehman M.D. 01/18/2022 3:43 PM Discharge Plan Visit Data Chief Complaint: Confusion ED Provider: Song Valdez Discharge Problem: Sepsis, Leukocytosis, Acute UTI Forms Stand Alone Forms: [facility] Prescriptions Prescriptions: No Action Bengay Greaseless 15-10 % cream 1 appln TOP TID PRN (Reason: PAIN RELIEF) diphenhydramine HCl [Allergy (diphenhydramine)] 25 mg capsule 25 mg PO QPM famotidine 20 mg tablet 20 mg PO BID Rx Instructions: TAKES AT 0630 AND 1630 finasteride 5 mg tablet 5 mg PO QAM loperamide [Imodium A-D] 2 mg capsule 2 mg PO UD PRN (Reason: Diarrhea) Rx Instructions: do not exceed 16 mg in 24 hr labetalol 100 mg tablet 50 mg PO BID tamsulosin 0.4 mg capsule 0.4 mg PO HS acetaminophen [Tylenol] 325 mg capsule 650 mg PO Q6H MDD 3 GRAMS/24 HOURS PRN (Reason: FEVER/PAIN) Xarelto 10 mg tablet 10 mg PO QPM ondansetron HCl [Zofran] 4 mg Tablet 4 mg PO Q6H PRN (Reason: NAUSEA/VOMITING) melatonin 3 mg Tablet 3 mg PO HS diphenoxylate-atropine [Lomotil] 2.5-0.025 mg Tablet 2 tab PO Q6 PRN (Reason: Diarrhea) Rx Instructions: for 2 weeks from 07/22/20- 08/05/20 tramadol 50 mg Tablet 50 mg PO Q6H PRN (Reason: Pain) potassium chloride 20 mEq/15 mL Liquid 20 meq PO BID Rx Instructions: start 07/22/20 @ 2030 promethazine 25 mg/mL Solution 25 mg IM Q6H PRN (Reason: nausea/vomiting) promethazine 25 mg Tablet 25 mg PO Q6H PRN (Reason: N/V) fluoxetine 10 mg Capsule 5 mg PO DAILY carbamide peroxide [Debrox] 6.5 % Drops 2 drp OTB QID Rx Instructions: FOR 5 DAYS, END ON 07/24/20.Flush both ears with warm water for debrox protocal for 1 day on 07/25/20 colestipol [Colestid] 1 gram Tablet 2 g PO BID@1000,2200 30 Days Qty: 120 1RF sodium bicarbonate 650 mg tablet 650 mg PO BID Qty: 60 0RF Referrals Referrals: [facility] [Primary Care Provider] -
[2022-01-18 14:48] LABS: iSTAT Creatinine 1.1 mg/dl (0.6-1.3); iSTAT Ionized Calcium 1.18 mmol/l (1.12-1.32); iSTAT Potassium 4.4 mmol/L (3.3-5.0)
[2022-01-18 14:54] LABS: Basophils # (auto) 0.02 K/uL (0-0.2); Basophils % (auto) 0.1 %; Hematocrit (blood only) 50.7 % (40.1-51.0); Hemoglobin 16.7 g/dl (14.0-18.0); Immature Granulocytes # (auto) 0.12 K/uL (0.00-0.02); Immature Granulocytes % (auto) 0.9 %; Lymphocytes # (auto) 0.59 K/uL (1.2-3.4); Lymphocytes % (auto) 4.2 %; Mean Corpuscular Hemoglobin 29.9 pg (25.0-34.0); Mean Corpuscular Hgb Conc 32.9 g/dL (32.0-36.0); Mean Corpuscular Volume 90.7 fL (80.0-100.0); Monocytes # (auto) 1.94 K/uL (0.24-0.82); Monocytes % (auto) 13.9 %; Neutrophils # (auto) 11.28 K/uL (1.4-6.5); Neutrophils % (auto) 80.9 %; Platelet Count 182 K/uL (130-400); RDW Coefficient of Variation 13.1 % (11.5-14.5); RDW Standard Deviation 43.2 fL (36.4-46.3); Red Blood Count 5.59 M/uL (4.63-6.08); White Blood Count 13.95 K/ul (4.8-10.8)
[2022-01-18 14:57] LABS: HCO3 VBG 28 mmol/L; Oxygen Saturation VBG 81.7 %; PCO2 VBG 37 mmHg (38-50); PO2 VBG 49 mmHg; pH VBG 7.48 (7.36-7.41)
[2022-01-18 15:11] LABS: Alanine Aminotransferase 19 U/L (7-52); BUN Creatinine Ratio 19.4 (10-20); Bilirubin,Total 1.9 mg/dl (0.2-1.0); Blood Urea Nitrogen 21 mg/dl (6-23); Calcium 9.4 mg/dl (8.5-10.1); Carbon Dioxide 24 mmol/L (21-32); Chloride 99 mmol/L (98-107); Creatinine Clr Calc Pharmacy 101.9 ml/min; Est GFR (Non-African American) 71.6 ml/min; Glucose 122 mg/dl (70-99(Fasting)); Total Protein 8.1 gm/dl (6.0-8.3)
--- NOTE | 2022-01-18 15:20 | XRay Report ---
SINGLE VIEW CHEST CLINICAL HISTORY: Sepsis FINDINGS: An AP, portable, upright chest radiograph is compared to study dated 03/14/2020. The examin ation is degraded by portable technique and patient rotation. The heart is enlarged noting atheroscl erotic calcification of the thoracic aorta. There is pulmonary vascular congestion. There is chronic elevation of the right hemidiaphragm with mild bibasilar atelectasis. No large pleural effusion or pn eumothorax is seen. The skeletal structures are osteopenic. The bony thorax is grossly intact. IMPRESSION: Cardiomegaly without evidence of congestive failure. ACT 112: Negative or not required by law. Electronically signed by: Maycol Del Rosario M.D. 01/18/2022 3:18 PM
[2022-01-18] MEDS ORDERED: OPTIRAY 300 500mL IV ONE (15:35)
--- NOTE | 2022-01-18 15:46 | CT Scan Report ---
HEAD CT NONCONTRAST CT DOSE: 3535.00 mGy.cm HISTORY: Altered mental status. Confusion. TECHNIQUE: Multiaxial CT images of the head were performed without the use of intravenous contrast. A utomated exposure control was utilized for this study. A dose lowering technique was utilized adheri ng to the principles of ALARA. Comparison: Head CT 04/05/2019. Findings: Partially visualized retention cysts again noted within the right maxillary sinus. The mast oid air cells are clear. No change in the 4.7 x 1.0 cm expansile lucent lesion within the left pariet al bone. Mild motion artifact. The calvarium and skull base are intact. There is no mass, hematoma, m idline shift, acute infarct. White matter hypodensity is nonspecific but suggestive of microvascular ischemic change. The ventricles and sulci demonstrate mild age-related involutional changes. Old lacu he infarcts seen within the right basal ganglia/thalamus. There is also an old lacunar infarct withi n the right cerebellar hemisphere. There are also old lacunar infarcts seen within the left basal scotty glia. Impression: 1. No acute infarct or intracranial hemorrhage. 2. Atrophy, microvascular ischemic changes, and old lacunar infarcts as described above. 3. No change in the left parietal bone expansile lesion. ACT 112: Negative or not required by law. Electronically signed by: Grupo Lehman M.D. 01/18/2022 3:43 PM
--- NOTE | 2022-01-18 16:09 | CT Scan Report ---
ABDOMEN AND PELVIS CT WITH IV CONTRAST CT DOSE: HISTORY: Confusion. Generalized abdominal pain. Altered mental status. TECHNIQUE: Multiaxial CT images of the abdomen and pelvis were performed following the use of intrave nous contrast. A dose lowering technique was utilized adhering to the principles of ALARA. COMPARISON STUDY: Abdomen and pelvis CT 07/22/2020. FINDINGS: Motion artifact resulting in suboptimal evaluation. The lung bases are grossly clear. No pn eumoperitoneum. No pneumatosis. No suspicious lytic or blastic osseous lesions. The left anterolatera l abdominal wall is obscured due to the abdominal wall abutting the gantry. Cholelithiasis. No defini te gallbladder wall thickening. Stable 1 cm hypodense lesion within the left hepatic lobe. This favor s a cyst. The spleen, adrenal glands, and pancreas appear unremarkable. Mild bilateral perinephric ed eleni which is likely chronic. This remains unchanged. There is a 1 cm hypodense lesion within the uppe r pole of the left kidney. This is not well assessed due to the motion artifact but is similar to the prior studies and therefore favors a cyst. No renal or ureteral stones. No hydronephrosis. The main portal vein is patent. Normal caliber abdominal aorta. No retroperitoneal lymphadenopathy. Mild bladd er wall thickening with adjacent fat stranding. The prostate gland is normal in size. Moderate well-f ormed stool seen within the colon. No definite bowel wall thickening or obstruction. Normal appendix. IMPRESSION: 1. Suboptimal evaluation of the abdomen and pelvis due to the motion artifact and the left lateral ab dominal wall abutting the gantry. 2. No definite bowel wall thickening or obstruction. 3. Normal appendix. 4. No hydronephrosis. 5. Mild bladder wall thickening. This may represent a cystitis. Recommend correlation with urinalysis . 6. Cholelithiasis. ACT 112: Negative or not required by law. Electronically signed by: Grupo Lehman M.D. 01/18/2022 4:07 PM
[2022-01-18 16:32] LABS: INR 1.2 (0.9-1.1); Partial Thromboplastin Ratio 1.1; Partial Thromboplastin Time 29.8 Seconds (21.0-31.0); Prothrombin Time 13.1 Seconds (9.0-12.0)
[2022-01-18 16:43] LABS: Albumin Level 3.7 gm/dl (3.4-5.0); Magnesium 1.9 mg/dl (1.7-2.4); Potassium 4.6 mmol/L (3.5-5.1)
[2022-01-18] MEDS ORDERED: SODIUM CHLORIDE 0.9% 1000ML 1,000 ML IV ONE (16:44)
[2022-01-18] MEDS ORDERED: KETOROLAC TROMETHAMINE 15 MG/ML VIAL IV ONE (16:44)
[2022-01-18 17:21] LABS: Appearance Urine Cloudy (Clear); Bacteria Urine Automated Negative (Negative); Blood Urine 3+ (Negative); Color Urine Orange; Epithelial Cell Urine Auto >30 /lpf (0-5); Glucose Urine UA Negative (Negative); Ketones Urine Trace (Negative); Leukocyte Esterase Urine 2+ (Negative); Nitrite Urine Positive (Negative); Protein Urine 3+ (Negative); Specific Gravity Urine > 1.045 (1.000-1.030); Urobilinogen Urine Negative (Negative); WBC Urine Automated >30 /hpf (0-5)
[2022-01-18 17:28] LABS: Bilirubin Urine 1+ (Negative)
--- NOTE | 2022-01-18 17:30 | History & Physical Report ---
Date of Service January 18, 2022 Assessment & Plan (1) Acute UTI: Plan: Urinary tract infection Leukocytosis to 13.95 ABG with mild respiratory alkalosis BMP with normal creatinine Bili elevated to 1.9 CTA/P: Motion artifact. Bladder wall thickening suspicious for cystitis. UA pending. Cholelithiasis is noted CXR without acute findings CThead: Microvascular ischemic changes, old lacunar infarcts. No acute findings. Parietal bone expansile lesion stable Follow UA/UC, admit to MedSurg Continue Rocephin Blood cultures pending Elevated bilirubin Cholelithiasis without stones appreciated Trend,USgallbladder for better clarification, consider HIDA if sx or not improving with above. Patient denies pain or symptoms of this, unreliable historian at time of assess. Blackwood's is not present. Depression/anxiety Continue fluoxetine LUTS Continue finasteride Continue Flomax History of DVT ? Unclear from record review, and patient is unable to give a history. This is listed as being given at [facility] for DVT prophylaxis, patient is unable to give history of why is been on this, it is been pain continued for 2 years. We will continue to follow and look for med reconciliation On rivaroxaban 10 mg daily Prophylaxis: On rivaroxaban Diet: N.p.o. while confused, if alert may progress diet after ultrasound CODE STATUS: DNR per record review Disposition telemetry for tachycardia (2) Leukocytosis: (3) Sepsis: (4) Hypertension: (5) BPH w urinary obs/LUTS: Plan Urinary tract infection Leukocytosis to 13.95 ABG with mild respiratory alkalosis BMP with normal creatinine Bili elevated to 1.9 CTA/P: Motion artifact. Bladder wall thickening suspicious for cystitis. UA pending. Cholelithiasis is noted CXR without acute findings CThead: Microvascular ischemic changes, old lacunar infarcts. No acute findings. Parietal bone expansile lesion stable Follow UA/UC, admit to MedSurg Continue Rocephin Blood cultures pending Elevated bilirubin Cholelithiasis without stones appreciated Trend, will consider HIDA. Patient denies pain or symptoms of this, unreliable historian at time of assess Depression/anxiety Continue fluoxetine LUTS Continue finasteride Continue Flomax History of DVT ? Unclear from record review, and patient is unable to give a history. This is listed as being given at [facility] for DVT prophylaxis, patient is unable to give history of why is been on this, it is been pain continued for 2 years. We will continue to follow and look for med reconciliation On rivaroxaban 10 mg daily Prophylaxis: On rivaroxaban Diet: N.p.o. while confused, if alert may progress diet CODE STATUS: DNR per record review Disposition telemetry for tachycardia History of Present Illness Primary Care Provider: [facility] Diego Lozada is a 66-year-old male who presented febrile, tachycardic, and confused with a leukocytosis and CT showing bladder stranding. He has been recommended for admission for complicated UTI Patient seen at the bedside. Reportedly at baseline is awake, alert, and oriented but had 1 day of confusion. Does have a history of stroke. Refused all medications morning of admission. Per report patient can void normally, but is intentionally incontinent at [facility] Per signout. Has been febrile to 102, with hallucinations, negative COVID test, and agitation prior to admission. At time of bedside assessment he is not combative, but is oriented to name only. Denies any pain including chest pain, chest pressure, back pain, neck pain, abdominal pain. He is not short of breath. He does not feel like he is having fevers, when asked how he feels he replies "I do not know ". Regular, tachycardic. Denies focal weakness, but goes back to sleep frequently and does not engage with strength examination. Echo records from [facility] reviewed. He is noted to have history of essential hypertension, TRACY, severe obesity, hemiplegia and hemiparesis of the left side, major depressive disorder, recurrent UTIs, rheumatoid arthritis, generalized weakness Medical History: Reviewed Medications: Reviewed Surgical History: Reviewed Allergies: Reviewed Social History: Reviewed, denies tobacco, alcohol, and substance use at bedside exam Code Status: DNR/DNI Allergies Allergy/AdvReac Type Severity Reaction Status Date / Time coffee (Coffea arabica) Allergy Unknown ON [facility]RE Verified 07/22/20 20:02 [facility] LIST strawberry Allergy Unknown ON CENTRE Verified 07/22/20 20:02 [facility] LIST Home Medications Medication Instructions Recorded Confirmed Type acetaminophen 325 mg capsule 650 mg PO Q6H PRN FEVER/PAIN 12/23/19 07/22/20 History (Tylenol) diphenhydramine HCl 25 mg capsule 25 mg PO QPM 12/23/19 07/22/20 History (Allergy (diphenhydramine)) famotidine 20 mg tablet 20 mg PO BID 12/23/19 07/22/20 History finasteride 5 mg tablet 5 mg PO QAM 12/23/19 07/22/20 History labetalol 100 mg tablet 50 mg PO BID 12/23/19 07/22/20 History loperamide 2 mg capsule (Imodium 2 mg PO UD PRN Diarrhea 12/23/19 07/22/20 History A-D) methyl salicylate 15 %-menthol 10 1 appln topical TID PRN PAIN RELIEF 12/23/19 07/22/20 History % topical cream (Bengay Greaseless) rivaroxaban 10 mg tablet (Xarelto) 10 mg PO QPM 12/23/19 07/22/20 History tamsulosin 0.4 mg capsule 0.4 mg PO HS 12/23/19 07/22/20 History melatonin 3 mg tablet 3 mg PO HS 03/13/20 07/22/20 History ondansetron HCl 4 mg tablet 4 mg PO Q6H PRN NAUSEA/VOMITING 03/13/20 07/22/20 History (Zofran) carbamide peroxide 6.5 % ear drops 2 drp OTB QID 07/22/20 07/22/20 History (Debrox) diphenoxylate-atropine 2.5 2 tab PO Q6 PRN Diarrhea 07/22/20 07/22/20 History mg-0.025 mg tablet (Lomotil) fluoxetine 10 mg capsule 5 mg PO DAILY 07/22/20 07/22/20 History potassium chloride 20 mEq/15 mL 20 meq PO BID 07/22/20 07/22/20 History oral liquid promethazine 25 mg tablet 25 mg PO Q6H PRN N/V 07/22/20 07/22/20 History promethazine 25 mg/mL injection 25 mg IM Q6H PRN nausea/vomiting 07/22/20 07/22/20 History solution tramadol 50 mg tablet 50 mg PO Q6H PRN Pain 07/22/20 07/22/20 History colestipol 1 gram tablet (Colestid) 2 g PO BID@1000,2200 30 days #120 07/24/20 Rx tabs sodium bicarbonate 650 mg tablet 650 mg PO BID #60 tabs 07/24/20 Rx Past Med/Surg History Medical History Cellulitis of scrotum Diabetes Hypertension Left hemiparesis Morbid obesity Family History Other Cancer No pertinent family history in first degree relatives Stroke Social History Smoking Status: Unknown if ever smoked Second Hand Exposure: No; Hx Alcohol Use: No Hx Substance Use: No Preferred Language: Turkish Communication Ability: Effective [employer] Supervisor Required: No Beliefs That Will Affect Care: None marital status: / Current Living Situation: Halfway Current Living Situation Comment: [facility] Feels Safe at Home: Yes Assistive Devices: None Review of Systems Review of Systems: All systems reviewed & are unremarkable except as noted in Subjective Physical Exam Physical Exam: General: A&Ox3. NAD. Cooperative. HEENT: Atraumatic, normocephalic. Pulm: CTAB A&P. -wheezes, -rales, -rhonchi. Symmetrical chest rise. No increase in work of breathing. No respiratory distress. Cardiac: RRR, -mrg. Radial pulses intact and symmetrical. Abdominal: Nontender, nondistended, soft. BS present. Extremities: Strength is not somewhat limited by patient effort, but does have 4-/5 bilaterally, and is able to dorsiflex/plantarflex bilaterally. Previous report of left hemiparesis, complete hemiparesis was not present on exam endorses sensation of soft touch in hands and feet bilaterally Results & Data Results & Data ([facility]) Vital Signs (Past 12 Hours) Vital Signs Temp Pulse Pulse Resp BP BP Pulse Ox 01/18/22 17:22 112 H 24 111/86 93 01/18/22 16:37 117 H 24 131/95 92 01/18/22 16:09 115 H 156/78 H 94 01/18/22 15:42 112 H 26 H 137/98 93 01/18/22 15:05 117 H 144/89 H 89 L 01/18/22 15:05 24 89 L 01/18/22 14:15 93 01/18/22 14:43 91 01/18/22 14:33 120 H 28 H 134/81 96 01/18/22 14:05 37.6 C H 122 H 30 H 116/93 95 O2 Del Method O2 Flow Rate 01/18/22 17:22 Room Air 01/18/22 16:37 Room Air 01/18/22 16:09 Room Air 01/18/22 15:42 Room Air 01/18/22 15:05 Room Air 01/18/22 15:05 Room Air 01/18/22 14:15 Room Air 01/18/22 14:43 Room Air 01/18/22 14:33 Nasal Cannula 2 01/18/22 14:05 Room Air PG Care Time/CCT Total # of Minutes Spent Total Time Spent with Patient: Total time spent is greater than 50% in coordination of care (as documented) at patient's floor/unit and/or counseling patient: Coding Level of Care Code 37540 Initial Inpt Care Lvl 2 Diagnoses Acute UTI N39.0 Leukocytosis D72.829 Sepsis A41.9 Hypertension I10 BPH w urinary obs/LUTS N40.1; N13.8
[2022-01-18 17:38] LABS: Amorphous Sediment Urine Present (None Prsent); RBC Urine Automated >30 /hpf (0-4)
[2022-01-18] MEDS ORDERED: cefTRIAXone SODIUM 1,000 MG in DEXTROSE 5% 50 ML IV SCH (21:36)
[2022-01-18] MEDS ORDERED: traMADol HCL 50 MG TABLET PO PRN (21:36)
[2022-01-18] MEDS ORDERED: ACETAMINOPHEN 1000 MG/100 ML IV IV SCH (21:36)
[2022-01-18] MEDS: ACETAMINOPHEN 1,000 MG/100 ML VIAL IV SCH (21:59)
[2022-01-18] MEDS: COLESTIPOL HCL 1 GM TAB PO SCH (22:06)
[2022-01-18] MEDS: NSS + 20MEQ KCL 20 MEQ/1,000 ML BAG IV SCH (22:17)
[2022-01-18] MEDS: MELATONIN 3 MG TAB PO SCH (22:34)
[2022-01-18] MEDS: TAMSULOSIN HCL 0.4 MG CAP PO SCH (22:34)
[2022-01-18] MEDS: RIVAROXABAN 10 MG TABLET PO SCH (22:34)
[2022-01-18] MEDS: LABETALOL HCL 100 MG TAB PO SCH (22:34)
[2022-01-19] MEDS: ACETAMINOPHEN 1,000 MG/100 ML VIAL IV SCH ×3 (05:24→21:39)
[2022-01-19] MEDS: FAMOTIDINE 20 MG TAB PO SCH ×2 (05:30→17:51)
--- NOTE | 2022-01-19 05:47 | Electrocardiogram Report ---
Test Reason : Blood Pressure : / mmHG Vent. Rate : 118 BPM Atrial Rate : 118 BPM P-R Int : 148 ms QRS Dur : 142 ms QT Int : 350 ms P-R-T Axes : -01 -58 099 degrees QTc Int : 490 ms Sinus tachycardia Right bundle branch block Left anterior fascicular block Bifascicular block Left ventricular hypertrophy with repolarization abnormality Abnormal ECG When compared with ECG of 22-JUL-2020 17:19, Vent. rate has increased BY 43 BPM QRS duration has decreased Confirmed by Festus Renee ([id number]) on 01/19/2022 5:47:23 AM Referred By: [facility] Confirmed By:Festus Renee
[2022-01-19 06:24] LABS: A calco-baum cmplx NotReported Not Detected (NotDetected); Bact fragilis Not Reported Not Detected (NotDetected); C auris Not Reported Not Detected (NotDetected); Calbicans Not Reported Not Detected (NotDetected); Candida glabrata Not Reported Not Detected (NotDetected); Candida krusei Not Reported Not Detected (NotDetected); Cneoformans/gatti Not Reported Not Detected (NotDetected); Cparapsilosis Not Reported Not Detected (NotDetected); Ctropicalis Not Reported Not Detected (NotDetected); E cloacae compx Not Reported Not Detected (NotDetected); Efaecalis Not Reported Not Detected (NotDetected); Efaecium Not Reported Not Detected (NotDetected); Enterobacterales DETECTED (NotDetected); Enterobacterales Not Reported DETECTED (NotDetected); Escherichia coli Not Reported DETECTED (NotDetected); H influenzae Not Reported Not Detected (NotDetected); IMP Resistant Gene Not Detected (NotDetected); K aerogenes Not Reported Not Detected (NotDetected); KPC Resistant Gene Not Detected (NotDetected); Koxytoca Not Reported Not Detected (NotDetected); Kpneumoniae grp Not Reported Not Detected (NotDetected); Lmonocyt Not Reported Not Detected (NotDetected); N meningitidis Not Reported Not Detected (NotDetected); NDM Resistant Gene Not Detected (NotDetected); OXA 48 Like Resistant Gene Not Detected (NotDetected); P aeruginosa Not Reported Not Detected (NotDetected); Proteus spp Not Reported Not Detected (NotDetected); Salmonella spp Not Reported Not Detected (NotDetected); Smarcescens Not Reported Not Detected (NotDetected); Staph lugdunensis Not Reported Not Detected (NotDetected); Staph spp. Not Reported DETECTED (NotDetected); Staphaureus Not Reported Not Detected (NotDetected); Staphepi Not Reported DETECTED (NotDetected); Staphylococcus epidermidis DETECTED (NotDetected); Staphylococcus spp. DETECTED (NotDetected); Stenmaltophilia Not Reported Not Detected (NotDetected); Strep agal(GrpB) Not Reported Not Detected (NotDetected); Strep pneum Not Reported Not Detected (NotDetected); Strep pyog (GrpA) Not Reported Not Detected (NotDetected); Strep spp Not Reported Not Detected (NotDetected); VIM Resistant Gene Not Detected (NotDetected); mcr-1 Colistin Resistant Gene Not Detected (NotDetected); mecAC Resistant Gene DETECTED (NotDetected)
[2022-01-19] MEDS: NSS + 20MEQ KCL 20 MEQ/1,000 ML BAG IV SCH ×2 (08:25→17:51)
[2022-01-19] MEDS ORDERED: FLUoxetine HCL 10 MG CAP PO SCH (09:00)
[2022-01-19] MEDS ORDERED: cefTRIAXone SODIUM 2,000 MG in DEXTROSE 5% 50 ML IV SCH (09:00)
--- NOTE | 2022-01-19 09:01 | Ultrasound Report ---
US gallbladder CLINICAL HISTORY: juana TECHNIQUE: Multiple real-time sonographic images of the right upper quadrant were obtained. Comparison: Comparison is made to CT abdomen pelvis 01/18/2022 FINDINGS: The liver is diffusely echogenic in appearance with poor ultrasound penetration, with normal contour, which is consistent with fatty infiltration. No focal mass lesions are seen. No intrahepatic duct al dilatation is seen. Numerous gallstones are seen. Evaluation for gallbladder wall thickening is l imited due to under distended gallbladder, it appears nonthickened at approximately 3 mm. Blackwood's si gn cannot be assessed as the patient is unresponsive. The common duct measures 0.4 cm in diameter at the level of the hepatic artery. The visualized portions of the pancreas appear normal. The right kidney shows normal echogenicity, cortical thickness and renal contour. The right kidney sh ows no evidence of hydronephrosis or mass. No ascites or free fluid is seen in Gan's pouch. IMPRESSION: 1. Highly limited exam due to gallbladder collapse and patient's somnolence. Cholelithiasis is seen. There is no definite evidence of cholecystitis. If clinical uncertainty remains, nuclear medicine HI DA scan can be performed. 2. Hepatic steatosis. ACT 112: Negative or not required by law. Electronically signed by: Greg Castellon M.D. 01/19/2022 8:56 AM
[2022-01-19 09:27] LABS: A calco-baum cmplx NotReported Not Detected (NotDetected); Bact fragilis Not Reported Not Detected (NotDetected); C auris Not Reported Not Detected (NotDetected); Calbicans Not Reported Not Detected (NotDetected); Candida glabrata Not Reported Not Detected (NotDetected); Candida krusei Not Reported Not Detected (NotDetected); Cneoformans/gatti Not Reported Not Detected (NotDetected); Cparapsilosis Not Reported Not Detected (NotDetected); Ctropicalis Not Reported Not Detected (NotDetected); E cloacae compx Not Reported Not Detected (NotDetected); Efaecalis Not Reported Not Detected (NotDetected); Efaecium Not Reported Not Detected (NotDetected); Enterobacterales DETECTED (NotDetected); Enterobacterales Not Reported DETECTED (NotDetected); Escherichia coli Not Reported DETECTED (NotDetected); H influenzae Not Reported Not Detected (NotDetected); IMP Resistant Gene Not Detected (NotDetected); K aerogenes Not Reported Not Detected (NotDetected); KPC Resistant Gene Not Detected (NotDetected); Koxytoca Not Reported Not Detected (NotDetected); Kpneumoniae grp Not Reported Not Detected (NotDetected); Lmonocyt Not Reported Not Detected (NotDetected); N meningitidis Not Reported Not Detected (NotDetected); NDM Resistant Gene Not Detected (NotDetected); OXA 48 Like Resistant Gene Not Detected (NotDetected); P aeruginosa Not Reported Not Detected (NotDetected); Proteus spp Not Reported Not Detected (NotDetected); Salmonella spp Not Reported Not Detected (NotDetected); Smarcescens Not Reported Not Detected (NotDetected); Staph lugdunensis Not Reported Not Detected (NotDetected); Staph spp. Not Reported Not Detected (NotDetected); Staphaureus Not Reported Not Detected (NotDetected); Staphepi Not Reported Not Detected (NotDetected); Stenmaltophilia Not Reported Not Detected (NotDetected); Strep agal(GrpB) Not Reported Not Detected (NotDetected); Strep pneum Not Reported Not Detected (NotDetected); Strep pyog (GrpA) Not Reported Not Detected (NotDetected); Strep spp Not Reported Not Detected (NotDetected); VIM Resistant Gene Not Detected (NotDetected); mcr-1 Colistin Resistant Gene Not Detected (NotDetected)
[2022-01-19 09:38] LABS: CTX-M Resistant Gene DETECTED (NotDetected)
[2022-01-19 09:39] LABS: CTX-M Resistant Gene DETECTED (NotDetected)
[2022-01-19] MEDS: FINASTERIDE 5 MG TAB PO SCH (10:38)
[2022-01-19] MEDS: COLESTIPOL HCL 1 GM TAB PO SCH ×2 (10:38→21:41)
[2022-01-19] MEDS: LABETALOL HCL 100 MG TAB PO SCH (10:38)
[2022-01-19] MEDS: METOPROLOL TARTRATE 1 MG/ML VIAL IV SCH ×2 (11:24→17:54)
[2022-01-19] MEDS: ERTAPENEM SODIUM 1,000 MG in SODIUM CHLORIDE 0.9% 50 ML IV SCH (11:27)
[2022-01-19] MEDS: MICONAZOLE NITRATE POWDER 43 GM EXT PRN (12:24)
[2022-01-19] MEDS: MELATONIN 3 MG TAB PO SCH (20:08)
[2022-01-19] MEDS: RIVAROXABAN 10 MG TABLET PO SCH (20:09)
[2022-01-19] MEDS: TAMSULOSIN HCL 0.4 MG CAP PO SCH (20:09)
--- NOTE | 2022-01-19 21:16 | Hospitalist Progress Note ---
Date of Service January 19, 2022 Assessment & Plan (1) Acute UTI: Plan: Urinary tract infection w sepsis/bacteremia present on admission culture appearing to be ESBL by PCRchanged to ertapenem given local susceptibility patterns. -As the day progressed, appearing to stabilize more. Elevated bilirubin Ultrasound showing stones, no definite cholecystitis, fatty liver. Common bile duct only 0.4 cm. Suspect nonspecific, only 1.9. Follow Depression/anxiety Continue fluoxetine LUTS Continue finasteride Continue Flomax History of DVT ? Unclear history, but on chronic prophylaxis Continue rivaroxaban 10 mg daily Prophylaxis: On rivaroxaban Diet: N.p.o. while confused, if alert may progress diet after ultrasound CODE STATUS: DNR per record review Disposition telemetry for tachycardia (2) Leukocytosis: (3) Sepsis: (4) Hypertension: (5) BPH w urinary obs/LUTS: Plan Urinary tract infection Leukocytosis to 13.95 ABG with mild respiratory alkalosis BMP with normal creatinine Bili elevated to 1.9 CTA/P: Motion artifact. Bladder wall thickening suspicious for cystitis. UA pending. Cholelithiasis is noted CXR without acute findings CThead: Microvascular ischemic changes, old lacunar infarcts. No acute findings. Parietal bone expansile lesion stable Follow UA/UC, admit to MedSurg Continue Rocephin Blood cultures pending Elevated bilirubin Cholelithiasis without stones appreciated Trend, will consider HIDA. Patient denies pain or symptoms of this, unreliable historian at time of assess Depression/anxiety Continue fluoxetine LUTS Continue finasteride Continue Flomax History of DVT ? Unclear from record review, and patient is unable to give a history. [facility], patient is unable to g galo history of why is been on this, it is been pain continued for 2 years. We will continue to follow and look for med reconciliation On rivaroxaban 10 mg daily Prophylaxis: On rivaroxaban Diet: N.p.o. while confused, if alert may progress diet CODE STATUS: DNR per record review Disposition telemetry for tachycardia Admission and Anticipated Discharge Date Admission Date: January 18, 2022 Subjective No meaningful HPI review of systems. Review of Systems Review of Systems: Unobtainable due to cognitive status Physical Exam Physical Exam: gen initially makes eye contact and says yes whenever asked if he is Mr. Lozada, then really ceases to make eye contact and does not speak at all otherwise. nad heent nc at mmm cardio is regular to somewhat tachycardic whenever I see him, no rubs murmurs or gallops. Lungs are clear to auscultation bilaterally no rales rhonchi or wheeze with good effort. Abdomen is soft nondistended nontender no masses organomegaly. Extremities without sinus clubbing, he has bilateral lower extremity edema no calf tenderness. Skin shows no rashes no pallor or icterus. Neuro without localizing signs. Results & Data Results & Data ([facility]) Vital Signs (Past 12 Hours) Vital Signs Temp Pulse Pulse Pulse Resp BP Pulse Ox 01/19/22 20:26 01/19/22 19:00 97.5 F L 97 H 20 129/63 91 01/19/22 16:50 98.6 F 100 H 20 138/83 93 01/19/22 16:00 102 H 01/19/22 11:24 115 H 01/19/22 11:19 98.1 F 98 H 20 138/80 91 O2 Del Method 01/19/22 20:26 Room Air 01/19/22 19:00 Room Air 01/19/22 16:50 Room Air 01/19/22 16:00 01/19/22 11:24 01/19/22 11:19 Room Air PG Care Time/CCT Total # of Minutes Spent Total Time Spent with Patient: Total time spent is greater than 50% in coordination of care (as documented) at patient's floor/unit and/or counseling patient: Coding Level of Care Code 42416 Subseq Hosp Care Lvl 3 Diagnoses Acute UTI N39.0 Leukocytosis D72.829 Sepsis A41.9 Hypertension I10 BPH w urinary obs/LUTS N40.1; N13.8
[2022-01-20] MEDS: METOPROLOL TARTRATE 1 MG/ML VIAL IV SCH ×3 (00:25→12:40)
[2022-01-20] MEDS: ACETAMINOPHEN 1,000 MG/100 ML VIAL IV SCH ×2 (05:07→13:14)
[2022-01-20] MEDS: FAMOTIDINE 20 MG TAB PO SCH ×2 (05:55→17:53)
[2022-01-20 06:34] LABS: Basophils # (auto) 0.03 K/uL (0-0.2); Basophils % (auto) 0.3 %; Eosinophils # (auto) 0.01 K/uL (0-0.50); Eosinophils % (auto) 0.1 %; Hematocrit (blood only) 45.8 % (40.1-51.0); Hemoglobin 14.8 g/dl (14.0-18.0); Immature Granulocytes # (auto) 0.06 K/uL (0.00-0.02); Immature Granulocytes % (auto) 0.6 %; Lymphocytes # (auto) 0.45 K/uL (1.2-3.4); Lymphocytes % (auto) 4.4 %; Mean Corpuscular Hemoglobin 30.2 pg (25.0-34.0); Mean Corpuscular Hgb Conc 32.3 g/dL (32.0-36.0); Mean Corpuscular Volume 93.5 fL (80.0-100.0); Mean Platelet Volume 11.6 fL (9.4-12.4); Monocytes # (auto) 2.05 K/uL (0.24-0.82); Monocytes % (auto) 20.1 %; Neutrophils # (auto) 7.58 K/uL (1.4-6.5); Neutrophils % (auto) 74.5 %; Platelet Count 148 K/uL (130-400); RDW Coefficient of Variation 13.8 % (11.5-14.5); RDW Standard Deviation 47.5 fL (36.4-46.3); White Blood Count 10.18 K/ul (4.8-10.8)
[2022-01-20 07:13] LABS: Albumin Globulin Ratio 0.9 (0.9-2); Albumin Level 3.2 gm/dl (3.4-5.0); BUN Creatinine Ratio 35.9 (10-20); Bilirubin,Total 0.6 mg/dl (0.2-1.0); Calcium 8.7 mg/dl (8.5-10.1); Creatinine Clr Calc Pharmacy 82.9 ml/min; Est GFR (African American) 65.8 ml/min; Est GFR (Non-African American) 56.7 ml/min; Globulin 3.5 gm/dl (2.5-4.0); Potassium 4.3 mmol/L (3.5-5.1); Total Protein 6.7 gm/dl (6.0-8.3)
[2022-01-20] MEDS: ERTAPENEM SODIUM 1,000 MG in SODIUM CHLORIDE 0.9% 50 ML IV SCH (11:10)
--- NOTE | 2022-01-20 11:17 | Hospitalist Progress Note ---
Date of Service January 20, 2022 Assessment & Plan (1) Acute UTI: Plan: Urinary tract infection w sepsis/bacteremia present on admission ESBL E. colisensitive to ertapenemcontinue the same. Showing improvement. Sepsis appears to have resolved. Difficulty with eating/taking pills -I do suspect this is mostly acute from septic encephalopathy, and as it is resolving, hopefully his ability to take p.o. will be okay. That said, given that bedside nursing swallow eval was concerning for aspiration, before starting him back on a renal diet we will have speech see him. Elevated bilirubin Ultrasound showing stones, no definite cholecystitis, fatty liver. Common bile duct only 0.4 cm. Was only 1.9, now down to 0.6. Nonspecific. Depression/anxiety Continue fluoxetine LUTS Continue finasteride Continue Flomax History of DVT ? Unclear history, but on chronic prophylaxis Continue rivaroxaban 10 mg daily Prophylaxis: On rivaroxaban Diet: N.p.o. while confused, if alert may progress diet after ultrasound CODE STATUS: DNR per record review Disposition stable for medical, as long as he does okay with his vitals through today into tomorrow, presuming the blood cultures match his urine culture (which I assume they will), and assuming that his p.o. intake is okay/speech evdennise does not require any hospital level interventionshopefully return to SNF tomorrow. (2) Leukocytosis: (3) Sepsis: (4) Hypertension: (5) BPH w urinary obs/LUTS: Plan Urinary tract infection Leukocytosis to 13.95 ABG with mild respiratory alkalosis BMP with normal creatinine Bili elevated to 1.9 CTA/P: Motion artifact. Bladder wall thickening suspicious for cystitis. UA pending. Cholelithiasis is noted CXR without acute findings CThead: Microvascular ischemic changes, old lacunar infarcts. No acute findings. Parietal bone expansile lesion stable Follow UA/UC, admit to MedSurg Continue Rocephin Blood cultures pending Elevated bilirubin Cholelithiasis without stones appreciated Trend, will consider HIDA. Patient denies pain or symptoms of this, unreliable historian at time of assess Depression/anxiety Continue fluoxetine LUTS Continue finasteride Continue Flomax History of DVT ? Unclear from record review, and patient is unable to give a history. [facility], patient is unable to give history of why is been on this, it is been pain continued for 2 years. We will continue to follow and look for med reconciliation On rivaroxaban 10 mg daily Prophylaxis: On rivaroxaban Diet: N.p.o. while confused, if alert may progress diet CODE STATUS: DNR per record review Disposition telemetry for tachycardia Admission and Anticipated Discharge Date Admission Date: January 18, 2022 Subjective When I entered the room he loudly and abruptly asks "who the fuck are you?!"After explaining what is going on and is been in the hospital for a few days with sepsis and encephalopathy, he softens this time somewhat. He has no pain, no chest pain no shortness of breath no abdominal pain. He feels like he could eat and drink okay. Nursing does note that giving him some water at the bedside he did cough and they were concerned about aspirationtherefore speech evaluation. [facility], he does normally eat and drink well and without difficulty, but his gruff personality is very much his normal. Review of Systems Review of Systems: All systems reviewed & are unremarkable except as noted in HPI & below Physical Exam Physical Exam: In general awake and alert no distress. HEENT normocephalic atraumatic mucous membranes moist. Breathing unlabored no accessory muscle use good effort. Skin shows no rashes no pallor or icterus. Neuro without focal deficits or lateralizing signs. Results & Data Results & Data ([facility]) Vital Signs (Past 12 Hours) Vital Signs Temp Pulse Pulse Resp BP BP Pulse Ox 01/20/22 08:00 70 01/20/22 07:29 01/20/22 07:29 97.5 F L 84 20 157/98 H 93 01/20/22 00:25 96 H 133/80 O2 Del Method 01/20/22 08:00 01/20/22 07:29 Room Air 01/20/22 07:29 Room Air 01/20/22 00:25 PG Care Time/CCT Total # of Minutes Spent Total Time Spent with Patient: Total time spent is greater than 50% in coordination of care (as documented) at patient's floor/unit and/or counseling patient: Coding Level of Care Code 11909 Subseq Hosp Care Lvl 3 Diagnoses Acute UTI N39.0 Leukocytosis D72.829 Sepsis A41.9 Hypertension I10 BPH w urinary obs/LUTS N40.1; N13.8
[2022-01-20] MEDS: FINASTERIDE 5 MG TAB PO SCH (12:34)
[2022-01-20] MEDS: LABETALOL HCL 100 MG TAB PO SCH ×2 (12:34→21:21)
[2022-01-20] MEDS: MICONAZOLE NITRATE POWDER 43 GM EXT PRN (13:50)
[2022-01-20] MEDS: COLESTIPOL HCL 1 GM TAB PO SCH ×2 (13:51→22:23)
[2022-01-20] MEDS ORDERED: ACETAMINOPHEN 325 MG TAB PO PRN (14:07)
[2022-01-20] MEDS: RIVAROXABAN 10 MG TABLET PO SCH (21:19)
[2022-01-20] MEDS: TAMSULOSIN HCL 0.4 MG CAP PO SCH (21:19)
[2022-01-20] MEDS: SODIUM BICARBONATE 650 MG TAB PO SCH (21:19)
[2022-01-20] MEDS: MELATONIN 3 MG TAB PO SCH (21:24)
[2022-01-21] MEDS: FAMOTIDINE 20 MG TAB PO SCH ×2 (05:59→16:14)
[2022-01-21] MEDS: LABETALOL HCL 100 MG TAB PO SCH (08:37)
[2022-01-21] MEDS: SODIUM BICARBONATE 650 MG TAB PO SCH (08:37)
[2022-01-21] MEDS: MICONAZOLE NITRATE POWDER 43 GM EXT PRN (08:39)
[2022-01-21] MEDS: ERTAPENEM SODIUM 1,000 MG in SODIUM CHLORIDE 0.9% 50 ML IV SCH (10:03)
[2022-01-21] MEDS: FINASTERIDE 5 MG TAB PO SCH (12:30)
[2022-01-21] MEDS: COLESTIPOL HCL 1 GM TAB PO SCH (12:30)
--- NOTE | 2022-01-21 17:15 | Discharge Summary ---
Date of Service January 21, 2022 Admission HPI Per Admitting Provider Diego Lozada is a 66-year-old male who presented febrile, tachycardic, and confused with a leukocytosis and CT showing bladder stranding. He has been recommended for admission for complicated UTI Patient seen at the bedside. Reportedly at baseline is awake, alert, and oriented but had 1 day of confusion. Does have a history of stroke. Refused all medications morning of admission. Per report patient can void normally, but is intentionally incontinent at Center care Per signout. Has been febrile to 102, with hallucinations, negative COVID test, and agitation prior to admission. At time of bedside assessment he is not combative, but is oriented to name only. Denies any pain including chest pain, chest pressure, back pain, neck pain, abdominal pain. He is not short of breath. He does not feel like he is having fevers, when asked how he feels he replies "I do not know ". Regular, tachycardic. Denies focal weakness, but goes back to sleep frequently and does not engage with strength examination. Echo records from [facility] reviewed. He is noted to have history of essential hypertension, TRACY, severe obesity, hemiplegia and hemiparesis of the left side, major depressive disorder, recurrent UTIs, rheumatoid arthritis, generalized weakness Medical History: Reviewed Medications: Reviewed Surgical History: Reviewed Allergies: Reviewed Social History: Reviewed, denies tobacco, alcohol, and substance use at bedside exam Code Status: DNR/DNI Principal Diagnosis Metabolic encephalopathy due to urinary tract infection with sepsis/bacteremia present on admission, treated and resolved. Discharge Exam In general he is awake and alert pleasant no distress. HEENT normocephalic atraumatic mucous membranes moist. Breathing unlabored no accessory muscle use good effort. Skin shows no rashes no pallor or icterus. Neuro without focal deficits. Discharge Data Allergies Allergy/AdvReac Type Severity Reaction Status Date / Time coffee (Coffea arabica) Allergy Unknown ON CENTRE Verified 07/22/20 20:02 CREST LIST strawberry Allergy Unknown ON CENTRE Verified 07/22/20 20:02 CREST LIST Consultations 01/18/22 16:26 ED Decision to Admit Stat Ordered Studies 01/18/22 14:15 CT Abd and Pelvis [CT abd pelvis IV con only] Stat CT head/brain wo con Stat 01/18/22 20:51 US gallbladder Urgent Hospital Course (1) Acute UTI: Urinary tract infection w sepsis/bacteremia present on admission ESBL E. colisensitive to ertapenemcontinue the same. Showing improvement. Sepsis appears to have resolved. Anticipate 14 total days of ertapenem (has had 3 here), but of course, if he improves quite quicklyduration of treatment could be abbreviated. Difficulty with eating/taking pills -I do suspect this is mostly acute from septic encephalopathy, and as it is resolving, and his p.o. intake improved with his improving mentation. Speech recommendations put into discharge instructions, but overall he is safe to take p.o. Elevated bilirubin Ultrasound showing stones, no definite cholecystitis, fatty liver. Common bile duct only 0.4 cm. Was only 1.9, now down to 0.6. Nonspecific. Depression/anxiety Continue fluoxetine LUTS Continue finasteride Continue Flomax History of DVT ? Unclear history, but on chronic prophylaxis Continue rivaroxaban 10 mg daily Safe/stable return to SNF (2) Leukocytosis: (3) Sepsis: (4) Hypertension: (5) BPH w urinary obs/LUTS: Total Time Total Time Spent Total Time Spent (In Minutes): <30 Discharge Plan Discharge Items Patient Disposition: Transfer Shelter Fac Reason For Visit: CONFUSION, UTI Discharge Diagnosis: Metabolic encephalopathydue to UTI/sepsis/bacteremia Activity: Resume your previous activity Non-emergency contact: Primary Care Provider Call non-emergency contact if: you have any medication questions Follow-up/Referrals: [facility] [Primary Care Provider] - Diet: Regular Addtl Attending Provider Instructions: As far as diet: Please see attached speech recommendations below: 1. Easy to chew diet IDD SI 7. No straws. Assistance with intake as needed. Slow rate, small bites. Discontinue meals if overt difficulty or aspiration noted. Aspiration precautions with alternating, elevating head of the bed. Oral care (clean all surfaces of patient's mouth/tongue/cheek/pockets before any p.o. intake and before bed), would likely benefit from ongoing speech therapy at SNF. UTI/sepsis/bacteremiaESBL E. coli bacteremiasensitive to ertapenem. Right now presumptive course of treatment is 14 days of ertapenem 1 g IV daily. After today he will of had 3 doses, meaning that starting tomorrow, 01/22, he would require 11 more doses to complete 14 total days. Certainly if he improves much faster, the course of treatment could be shortened. Pending Studies at Discharge: No Stand-Alone Forms: My [facility] Skilled Items Patient informed of condition?: Yes DNR: Yes Discharge Level of Care: Skilled Communicable Disease: No Discharge Prognosis: Improving Lines: Peripheral IV Urinary Catheter: No Medications and DC Order Prescriptions: New ertapenem 1 gram recon soln 1 g IV DAILY 10 Days Qty: 11 0RF Continued Bengay Greaseless 15-10 % cream 1 appln TOP TID PRN (Reason: PAIN RELIEF) diphenhydramine HCl [Allergy (diphenhydramine)] 25 mg capsule 25 mg PO QPM famotidine 20 mg tablet 20 mg PO BID Rx Instructions: TAKES AT 0630 AND 1630 finasteride 5 mg tablet 5 mg PO QAM loperamide [Imodium A-D] 2 mg capsule 2 mg PO UD PRN (Reason: Diarrhea) Rx Instructions: do not exceed 16 mg in 24 hr labetalol 100 mg tablet 50 mg PO BID tamsulosin 0.4 mg capsule 0.4 mg PO HS acetaminophen [Tylenol] 325 mg capsule 650 mg PO Q6H MDD 3 GRAMS/24 HOURS PRN (Reason: FEVER/PAIN) Xarelto 10 mg tablet 10 mg PO QPM ondansetron HCl [Zofran] 4 mg Tablet 4 mg PO Q6H PRN (Reason: NAUSEA/VOMITING) melatonin 3 mg Tablet 3 mg PO HS diphenoxylate-atropine [Lomotil] 2.5-0.025 mg Tablet 2 tab PO Q6 PRN (Reason: Diarrhea) Rx Instructions: for 2 weeks from 07/22/20- 08/05/20 tramadol 50 mg Tablet 50 mg PO Q6H PRN (Reason: Pain) potassium chloride 20 mEq/15 mL Liquid 20 meq PO BID Rx Instructions: start 07/22/20 @ 2030 promethazine 25 mg/mL Solution 25 mg IM Q6H PRN (Reason: nausea/vomiting) promethazine 25 mg Tablet 25 mg PO Q6H PRN (Reason: N/V) fluoxetine 10 mg Capsule 5 mg PO DAILY Debrox 6.5 % Drops 2 drp OTB QID Rx Instructions: FOR 5 DAYS, END ON 07/24/20.Flush both ears with warm water for debrox protocal for 1 day on 07/25/20 colestipol [Colestid] 1 gram Tablet 2 g PO BID@1000,2200 30 Days Qty: 120 1RF sodium bicarbonate 650 mg tablet 650 mg PO BID Qty: 60 0RF Discharge Orders: Discharge Order (Routine); Ordered 01/21/22 Ordered By: Song Cottrell/Other Patient Handouts: Understanding Sepsis Admission Data Admit Date/Time: 01/18/22 17:49 Attending Provider: Song Crawford Admit Provider: Sheldon Teresa [facility] Other Providers: Sheldon Teresa Other Interventions: Discharge Summary Assessment (RN) Last Done: 01/21/22 13:54 Coding Level of Care Code D/C DAY MANAGEMENT <30 MINS Diagnoses Acute UTI N39.0 Leukocytosis D72.829 Sepsis A41.9 Hypertension I10 BPH w urinary obs/LUTS N40.1; N13.8
== END 2022-01-21 18:48 | DRG 871 ==
LOC: ED 13:51 → SUATTDRO 17:49 → 2W 17:49